=== PATIENT | male | born 1950 | race Caucasian/White ===

== ENCOUNTER 2018-12-28 10:50 | Outpatient (REF) | payer MEDICARE, SELFPAY ==
[2018-12-28 13:02] LABS: Abs Immature Grans 0.01 k/cumm (0.0-0.09); Absolute Basophil Count 0.02 k/cumm (0.0-0.2); Absolute Eosinophil Count 0.13 k/cumm (0.0-0.7); Absolute Lymphocyte Count 2.99 k/cumm (1.2-3.4); Absolute Monocyte Count 0.61 k/cumm (0.11-0.7); Absolute Neutrophil Count 3.92 k/cumm (1.2-6.7); Basophils % 0.3; Eosinophils % 1.7; HCT 41.2 % (40.0-50.0); HGB 13.7 g/dL (13.5-17.5); Immature Grans % 0.1; Lymphocytes % 38.9; Mean Corp. HGB Concentration 33.3 g/dL (32.0-36.0); Mean Corpuscular Volume 84.1 fL (80-95); Mean Platelet Volume 9.8 fL (8.0-11.0); Monocytes % 7.9; Neutrophils % 51.1; Platelet Count 296 x1000/uL (130-400); White Blood Cell Count 7.68 k/cumm (4.4-10.8)
== END 2018-12-28 11:10 ==
LOC: LBO 10:50
PROVIDERS: Visit Provider Nurse Practitioner Adult Health
DX: E11.9 Type 2 diabetes mellitus without complications (principal)
CPT/HCPCS: 36415; 85025

== ENCOUNTER 2019-01-02 10:42 | Outpatient (REF) | payer MEDICARE, SELFPAY ==
[2019-01-02 12:52] LABS: Abs Immature Grans 0.03 k/cumm (0.0-0.09); Absolute Basophil Count 0.04 k/cumm (0.0-0.2); Absolute Eosinophil Count 0.12 k/cumm (0.0-0.7); Absolute Lymphocyte Count 3.07 k/cumm (1.2-3.4); Absolute Monocyte Count 0.71 k/cumm (0.11-0.7); Absolute Neutrophil Count 4.19 k/cumm (1.2-6.7); Basophils % 0.5; Eosinophils % 1.5; HCT 39.8 % (40.0-50.0); HGB 13.6 g/dL (13.5-17.5); Immature Grans % 0.4; Lymphocytes % 37.6; Mean Corp. HGB Concentration 34.2 g/dL (32.0-36.0); Mean Corpuscular Hemoglobin 28.7 pg (27.0-33.0); Mean Platelet Volume 9.8 fL (8.0-11.0); Monocytes % 8.7; Neutrophils % 51.3; Platelet Count 295 x1000/uL (130-400); RBC 4.74 m/cumm (4.50-6.00); RBC Distribution Width 15.1 % (11.8-14.1); White Blood Cell Count 8.16 k/cumm (4.4-10.8)
== END 2019-01-02 11:02 ==
LOC: LBN 10:42
PROVIDERS: Visit Provider Family Medicine
DX: D64.9 Anemia, unspecified (principal)
CPT/HCPCS: 85025

== ENCOUNTER 2019-01-04 11:59 | Outpatient (CLI) | payer MEDICARE, SELFPAY ==
[2019-01-04 13:13] LABS: Abs Immature Grans 0.04 k/cumm (0.0-0.09); Absolute Basophil Count 0.03 k/cumm (0.0-0.2); Absolute Lymphocyte Count 3.92 k/cumm (1.2-3.4); Absolute Monocyte Count 0.81 k/cumm (0.11-0.7); Absolute Neutrophil Count 5.97 k/cumm (1.2-6.7); Basophils % 0.3; Eosinophils % 1.8; HCT 42.1 % (40.0-50.0); HGB 13.9 g/dL (13.5-17.5); Immature Grans % 0.4; Lymphocytes % 35.7; Mean Corpuscular Hemoglobin 28.2 pg (27.0-33.0); Mean Corpuscular Volume 85.4 fL (80-95); Mean Platelet Volume 9.9 fL (8.0-11.0); Monocytes % 7.4; Neutrophils % 54.4; Platelet Count 318 x1000/uL (130-400); RBC 4.93 m/cumm (4.50-6.00); RBC Distribution Width 15.9 % (11.8-14.1); White Blood Cell Count 10.97 k/cumm (4.4-10.8)
== END 2019-01-04 12:19 ==
PROVIDERS: Visit Provider Nurse Practitioner Adult Health
DX: D63.8 Anemia in other chronic diseases classified elsewhere (principal); E11.9 Type 2 diabetes mellitus without complications
CPT/HCPCS: 36415; 85025

== ENCOUNTER 2019-01-06 11:23 | Outpatient (REF) | payer MEDICARE, SELFPAY ==
[2019-01-06 12:25] LABS: Abs Immature Grans 0.02 k/cumm (0.0-0.09); Absolute Basophil Count 0.02 k/cumm (0.0-0.2); Absolute Eosinophil Count 0.16 k/cumm (0.0-0.7); Absolute Lymphocyte Count 2.56 k/cumm (1.2-3.4); Absolute Monocyte Count 0.54 k/cumm (0.11-0.7); Basophils % 0.3; Eosinophils % 2.1; HCT 40.7 % (40.0-50.0); HGB 13.4 g/dL (13.5-17.5); Immature Grans % 0.3; Lymphocytes % 33.7; Mean Corp. HGB Concentration 32.9 g/dL (32.0-36.0); Mean Corpuscular Hemoglobin 28.1 pg (27.0-33.0); Mean Corpuscular Volume 85.3 fL (80-95); Mean Platelet Volume 9.8 fL (8.0-11.0); Monocytes % 7.1; Neutrophils % 56.5; Platelet Count 282 x1000/uL (130-400); RBC 4.77 m/cumm (4.50-6.00); RBC Distribution Width 15.7 % (11.8-14.1)
== END 2019-01-06 11:43 ==
LOC: LBN 11:23
PROVIDERS: Visit Provider Nurse Practitioner Adult Health
DX: D64.9 Anemia, unspecified (principal)
CPT/HCPCS: 85025

== ENCOUNTER → 2019-01-18 14:52 | Outpatient (BNVA) | payer MEDICARE, SELFPAY | PROVIDERS: Referring Provider Internal Medicine; Visit Provider Psychiatry & Neurology Neurology | DX: G23.1 Progressive supranuclear ophthalmoplegia [Steele-Richardson-Olszewski] (principal); W19.XXXD Unspecified fall, subsequent encounter; G62.9 Polyneuropathy, unspecified | CPT/HCPCS: 99205 ==

== ENCOUNTER 2019-01-20 00:29 | Outpatient (CLI) | payer OTHER, SELFPAY ==
--- NOTE | 2019-01-20 07:19 | DI.US_ITS ---
SYMPTOM/DIAGNOSIS: F/U POSSIBLE FLUID COLLECTION IN GB LIMITED ABDOMINAL ULTRASOUND: The patient is status post cholecystectomy. There is a complex collection of fluid measuring 4 x 2.1 x 2.2 cm in the gallbladder fossa which on a prior [facility] study measured 6.6 x 3.8 x 4.2 cm. No echogenic foci are seen in the common duct which is not dilated. SUMMARY: A 4 x 2.1 x 2.2 cm complex fluid collection is seen in the gallbladder bed and is decreased in size when compared with the prior study where it measured 6.6 x 3.8 x 4.2 cm.
== END 2019-01-20 00:49 ==
PROVIDERS: Visit Provider Nurse Practitioner Adult Health
DX: K91.5 Postcholecystectomy syndrome (principal); Z90.49 Acquired absence of other specified parts of digestive tract
CPT/HCPCS: 76705

== ENCOUNTER 2019-01-21 11:38 | Outpatient (REF) | payer OTHER, SELFPAY ==
[2019-01-21 13:52] LABS: TSH 0.66 uIU/mL (0.358-3.74); Vitamin B12 547 pg/mL (193-986)
== END 2019-01-21 11:58 ==
LOC: LBN 11:38
PROVIDERS: Visit Provider Nurse Practitioner Adult Health
DX: M62.81 Muscle weakness (generalized) (principal)
CPT/HCPCS: 82607; 84443

== ENCOUNTER 2019-02-16 12:57 | Emergency (ER) | payer MEDICARE, SELFPAY ==
[2019-02-16] VITALS (12 sets, daily range): BP systolic 115–139; BP diastolic 66–86; PULSE 90–105; RESP 16–27; TEMP 36.6; O2SAT 94–98
--- NOTE | 2019-02-16 13:10 | DI.CT_ITS ---
SYMPTOMS/DIAGNOSIS: FALL, PT ON [facility]X[place] CRANIAL CT: Atrophic changes consistent with age are demonstrated. There is no evidence of an intra or extra-axial hemorrhage. Regions of diminished absorption in the frontoparietal white matter bilaterally are consistent with small vessel disease. There is no evidence of a skull fracture. The paranasal sinuses are intact. There is no mastoid effusion. CERVICAL SPINE CT: A CT examination of the cervical spine was carried out according to the usual protocol. The vertebral bodies are intact and are in normal alignment. There is no evidence of gross disc space narrowing. The posterior elements are intact with note made of facet joint DJD. The neural canal is widely patent throughout. The odontoid is intact and is closely applied to the anterior arch of C 1. The prevertebral soft tissues are unremarkable. SUMMARY: No evidence of a cervical spine fracture or subluxation.
--- NOTE | 2019-02-16 13:30 | W.ED.GENAD ---
Discharge Plan Disposition Patient Disposition: HOME Condition: Stable Discharge Details Chief Complaint: HeadInjury Clinical Impression: Hematoma of parietal scalp, Falls Primary Care Provider: Genia Helms ED Provider: Ken Sutton Home Meds and New Rx's Prescriptions: Continued aspirin 81 mg tablet 81 mg PO DAILY RF: 0 cholecalciferol (vitamin D3) 1,000 unit capsule 1,000 unit PO DAILY RF: 0 fluoxetine 40 mg capsule 40 mg PO DAILY RF: 0 furosemide 40 mg tablet 40 mg PO DAILY RF: 0 guaifenesin 100 mg/5 mL liquid 100 mg PO QID PRNRF: 0 insulin glargine 100 unit/mL (3 mL) insulin pen 86 unit SC DAILY RF: 0 magnesium oxide 420 mg tablet 420 mg PO DAILY RF: 0 metformin 1,000 mg tablet 1,000 mg PO BID RF: 0 dimethicone-petrolatum 1-30 % cream TP PRN RF: 0 simvastatin 20 mg tablet 20 mg PO QHS RF: 0 terazosin 5 mg capsule 5 mg PO QHS RF: 0 triamcinolone acetonide 0.025 % cream 1 applic TP BID RF: 0 buprenorphine HCl 2 mg tablet, sublingual 2 mg SL DAILY RF: 0 buprenorphine HCl 8 mg tablet, sublingual 8 mg SL DAILY RF: 0 omeprazole 20 mg tablet,delayed release (DR/EC) 20 mg PO DAILY RF: 0 cyanocobalamin (vitamin B-12) 1,000 mcg tablet 1,000 mcg PO DAILY RF: 0 hydromorphone 2 mg tablet 2 mg PO Q6H PRNRF: 0 aspirin 81 mg tablet,chewable 81 mg PO DAILY RF: 0 cholecalciferol (vitamin D3) 1,000 unit capsule 1,000 unit PO DAILY RF: 0 fluoxetine 40 mg capsule 40 mg PO DAILY RF: 0 acetaminophen 500 mg capsule 1,000 mg PO QID PRNRF: 0 bisacodyl [Dulcolax (bisacodyl)] 10 mg suppository 10 mg FL DAILY PRNRF: 0 Eliquis 5 mg tablet 5 mg PO BID RF: 0 apixaban 5 mg tablet 10 mg PO BID RF: 0 Humalog U-100 Insulin 100 unit/mL Solution RF: 0 carbidopa-levodopa 25-100 mg Tablet 1 tab PO TID RF: 0 loratadine [Claritin] 10 mg Tablet PRNRF: 0 Lantus Solostar U-100 Insulin 100 unit/mL (3 mL) Insulin Pen 16 unit SUBCUT .QHS RF: 0 Discharge Instructions Instructions: Head Injury (ED), Hematoma (ED) Additional Instructions: Patient may continue to use acetaminophen as needed for discomfort and apply cold compress to area of scalp hematoma. Continue to monitor patient for any change in condition and have patient reevaluated as needed. Patient may otherwise continue normally prescribed medication. Referrals: Genia Helms [Primary Care Provider] - (As needed for reassessment or for any change in condition) Discharge Data Discharge Date/Time-TO BE ENTERED AT DEPARTURE: 02/16/19 15:50 Medical Decision Making Patient presenting to the emergency department for chief complaint of head injury. Patient had a witnessed fall at [facility] where he tripped while using his walker falling backwards and striking his head. Patient is on Eliquis and does state superficial head pain but denies any loss of consciousness, chest pain, palpitations, other injury or areas of pain. Physical exam is positive for a significant hematoma to the right posterior scalp otherwise no C-spine tenderness, clear lung sounds, no neurological deficits, extremity exam unremarkable for acute trauma. Plan to perform radiological imaging of the head and cervical spine given patient's medical history, he is anticoagulated, and mechanism of injury. Plan to give patient Tylenol pending results Review of radiological imaging shows scalp hematoma otherwise no acute intracranial findings and no cervical spinal fractures are noted. Did discuss these findings with radiologist. Patient encouraged to continue to use acetaminophen for pain control and apply ice to area of hematoma. I feel the patient is able to be safely transported back to [facility] and is encouraged to continue to use walker during ambulation. Report was called by medical staff assistant over to the rehab facility and patient transferred back to their care. HPI General Mode of arrival: ambulatory. Date/Time Provider Initiated Documentation: 02/16/19 13:00. Limitations to Documentation: no limitations. Information obtained by: patient, EMS and RN notes reviewed. History of Present Illness 68 year old M presents to the emergency department with the chief complaint of Fall with head injury, described as moderate, with intensity rated at 6. Quality is described as aching, and is localized to the head (Right posterior). Patient started experiencing this minute(s) (30) and it has been constant. No relieving factors improve symptom(s), Patient notes no other symptoms.. Patient did receive the following treatments prior to arrival, none Related Data Home Medications Medication Instructions Recorded Confirmed aspirin 81 mg chewable tablet 81 mg PO DAILY 01/11/19 02/16/19 aspirin 81 mg tablet 81 mg PO DAILY 01/11/19 02/16/19 buprenorphine HCl 2 mg sublingual 2 mg SL DAILY 01/11/19 02/16/19 tablet buprenorphine HCl 8 mg sublingual 8 mg SL DAILY 01/11/19 02/16/19 tablet cholecalciferol (vitamin D3) 1,000 1,000 unit PO DAILY 01/11/19 02/16/19 unit capsule cholecalciferol (vitamin D3) 1,000 1,000 unit PO DAILY 01/11/19 02/16/19 unit capsule cyanocobalamin (vitamin B-12) 1,000 mcg PO DAILY 01/11/19 02/16/19 1,000 mcg tablet dimethicone-petrolatum 1 %-30 % applic TP PRN 01/11/19 01/11/19 topical cream fluoxetine 40 mg capsule 40 mg PO DAILY 01/11/19 02/16/19 fluoxetine 40 mg capsule 40 mg PO DAILY 01/11/19 02/16/19 furosemide 40 mg tablet 40 mg PO DAILY 01/11/19 02/16/19 guaifenesin 100 mg/5 mL oral liquid 100 mg PO QID PRN ml 01/11/19 01/11/19 hydromorphone 2 mg tablet 2 mg PO Q6H PRN 01/11/19 01/11/19 insulin glargine 100 unit/mL (3 86 unit SC DAILY ml 01/11/19 02/16/19 mL) subcutaneous pen magnesium oxide 420 mg tablet 420 mg PO DAILY tab 01/11/19 01/11/19 metformin 1,000 mg tablet 1,000 mg PO BID 01/11/19 02/16/19 omeprazole 20 mg tablet,delayed 20 mg PO DAILY 01/11/19 02/16/19 release simvastatin 20 mg tablet 20 mg PO QHS 01/11/19 02/16/19 terazosin 5 mg capsule 5 mg PO QHS 01/11/19 02/16/19 triamcinolone acetonide 0.025 % 1 applic TP BID 01/11/19 02/16/19 topical cream acetaminophen 500 mg capsule 1,000 mg PO QID PRN cap 01/19/19 02/16/19 apixaban 5 mg tablet 5 mg PO BID 01/19/19 02/16/19 apixaban 5 mg tablet 10 mg PO BID tab 01/19/19 02/16/19 bisacodyl 10 mg rectal suppository 10 mg FL DAILY PRN 01/19/19 02/16/19 Humalog U-100 Insulin 02/16/19 Lantus Solostar U-100 Insulin 16 unit SUBCUT .QHS 02/16/19 02/16/19 carbidopa-levodopa 1 tab PO TID 02/16/19 02/16/19 loratadine [Claritin] mg PRN 02/16/19 Allergies Allergy/AdvReac Type Severity Reaction Status Date / Time aspirin Allergy Unknown Verified 02/16/19 13:27 indomethacin [From Indocin] Allergy Unknown Verified 02/16/19 13:27 latex Allergy Unknown Verified 02/16/19 13:27 General Stated Complaint: HeadInjury RACHEL: 3 Review of Systems Constitutional Denies body ache(s), Denies chills, Denies fever(s) and Reports headache(s) Eyes Denies change in vision ENT Denies dizziness and Reports headache(s) Cardiovascular Denies chest pain and Denies syncope Gastrointestinal Denies nausea and Denies vomiting Musculoskeletal Reports system reviewed and no additional complaints, except as docu Neurologic Reports as per HPI, Denies dizziness, Denies syncope, Reports headache(s) and Denies sensory deficit PFSH Medical History Depression with anxiety (Acute) Diabetes (Chronic) Falls (Chronic) H/O ETOH abuse (Acute) Hypertension (Chronic) Insomnia (Acute) Obesity (Chronic) LULA (obstructive sleep apnea) (Chronic) Osteoarthritis (Chronic) Peripheral neuropathy (Chronic) PSP (progressive supranuclear palsy) (Chronic) PTSD (post-traumatic stress disorder) (Acute) Surgical History S/P cholecystectomy (Acute) Social History Smoking/Tobacco Use Status: Never Alcohol Intake: former Year quit: 2018 Drug use: Never Household members: spouse Number of Children: 3 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[place]; 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 Exam Const General: cooperative, healthy appearing, no acute distress and well groomed Orientation: alert, awake and oriented x3 HENMT Head: no Hernandez's sign, hematoma right parietal, no palpable skull fracture, no raccoon eyes, no temporal artery tenderness and No periorbital ecchymosis Ears: hearing grossly normal bilaterally and TM's normal bilaterally Mouth: oral mucosae normal and moist mucous membranes Throat: posterior oropharynx normal Eyes Visual Morgan: normal visual morgan by confrontation Alignment and Position: alignment normal Periorbital: periorbital findings normal Eyelids: eyelids normal Sclera: sclerae normal Cornea: corneas normal Pupils: PERRL EOM: EOM intact bilaterally Neck Neck: normal visual inspection, full ROM, no lymphadenopathy and no meningeal signs Resp Effort & Inspection: normal respiratory effort and able to speak in complete sentences Auscultation: clear to auscultation bilaterally Cardio Rate: regular rate Rhythm: regular rhythm Heart Sounds: S1 normal and S2 normal Neuro General: alert, awake, oriented x3, gait normal, tone normal, moves all extremities, CN's II-XI intact bilaterally and not confused Cognition: normal cognition Speech: speech normal Motor: muscle tone normal throughout, strength 5/5 throughout, no pronator drift, no movement abnormalities noted and no fasciculations Sensory Exam: no sensory deficits noted Coordination: [id number] test normal, Romberg test normal, Does not sway with eyes open, rapid alternating movement UE normal and rapid alternating movement LE normal Course Vital Signs Temperature 36.6 C 02/16/19 12:59 Pulse 97 H 02/16/19 12:59 Respiratory Rate 16 02/16/19 12:59 Blood Pressure 139/86 02/16/19 12:59 Pulse Oximetry 98 02/16/19 12:59 Temperature 36.6 C 02/16/19 12:59 Temperature Source Skin 02/16/19 12:59 Pulse 97 H 02/16/19 12:59 Respiratory Rate 16 02/16/19 12:59 Respiratory Effort Non-Labored 02/16/19 12:59 Blood Pressure 139/86 02/16/19 12:59 Blood Pressure Position Supine 02/16/19 12:59 Pulse Oximetry 98 02/16/19 12:59 Oxygen Delivery Method Room Air 02/16/19 12:59 Oxygen Flow Rate 0 02/16/19 12:59
[2019-02-16] MEDS: Acetaminophen 325 MG TAB 650 MG PO (14:05)
== END 2019-02-16 15:50 | disposition home or self-care (01) ==
PROVIDERS: Emergency Provider Nurse Practitioner Family; PCP Family Medicine
DX: S00.03XA Contusion of scalp, initial encounter (principal); W01.0XXA Fall on same level from slipping, tripping and stumbling without subsequent striking against object, initial encounter; E11.9 Type 2 diabetes mellitus without complications; Z79.4 Long term (current) use of insulin; I10 Essential (primary) hypertension
CPT/HCPCS: 99283; 70450; 72125; 99282

== ENCOUNTER 2019-02-18 01:18 | Outpatient (CLI) | payer OTHER, SELFPAY ==
--- NOTE | 2019-02-18 08:17 | DI.RAD_ITS ---
SYMPTOM/DIAGNOSIS: SOB, R06.02 CHEST X-RAY: PA Lateral. No priors. Heart size and pulmonary vasculature are within normal limits. No focal consolidating infiltrates, effusions or pneumothoraces are identified. Age appropriate degenerative changes are seen in the spine. There is a compression fracture deformity at T4 with loss of approximately 20% of the height of the vertebral body. IMPRESSION: No acute pulmonary process.
== END 2019-02-18 01:38 ==
PROVIDERS: PCP Family Medicine; Visit Provider Nurse Practitioner Adult Health
DX: R06.02 Shortness of breath (principal)
CPT/HCPCS: 71046

== ENCOUNTER 2019-02-21 02:00 | Outpatient (CLI) | payer OTHER, SELFPAY | END 2019-02-21 02:20 | PROVIDERS: PCP Family Medicine; Visit Provider Nurse Practitioner Adult Health | DX: R06.02 Shortness of breath (principal); R00.0 Tachycardia, unspecified | CPT/HCPCS: 93005; 93010 ==

== ENCOUNTER 2019-03-23 18:31 | Emergency (ER) | payer MEDICARE, SELFPAY ==
[2019-03-23 18:32] VITALS: BP 115/71; PULSE 91; RESP 18; TEMP 36.5; O2SAT 96
--- NOTE | 2019-03-23 19:27 | ED.GENADUL_ITS ---
Discharge Plan Disposition Patient Disposition: HOME Condition: Stable Discharge Details Chief Complaint: Orthopedic Clinical Impression: Abrasion of leg, right, Contusion of leg, right Primary Care Provider: Genia Helms ED Provider: Carley Roberts Home Meds and New Rx's Prescriptions: Continued GlucaGen Diagnostic Kit 1 mg/mL recon soln 1 mg SC ONCE RF: 0 dextrose [Dex4 Glucose] 40 % gel 15 gm PO Q15M RF: 0 ipratropium-albuterol 0.5 mg-3 mg(2.5 mg base)/3 mL solution for nebulization 3 ml IH QID PRNRF: 0 loperamide [Imodium A-D] 2 mg capsule 2 mg PO Q6H PRN PRNRF: 0 magnesium hydroxide [Milk of Magnesia] 400 mg/5 mL suspension 5 ml PO DAILY PRNRF: 0 (DME) Oxygen Tank See Rx Instructions .ROUTE .MEDSUPPLY Qty: 1 RF: 0 albuterol sulfate [Proventil HFA] 90 mcg/actuation HFA aerosol inhaler 2 puff IH Q4H RF: 0 cholecalciferol (vitamin D3) 1,000 unit capsule 1,000 unit PO DAILY RF: 0 fluoxetine 40 mg capsule 40 mg PO DAILY RF: 0 furosemide 40 mg tablet 40 mg PO DAILY RF: 0 guaifenesin 100 mg/5 mL liquid 100 mg PO QID PRNRF: 0 insulin glargine 100 unit/mL (3 mL) insulin pen 86 unit SC DAILY RF: 0 metformin 1,000 mg tablet 1,000 mg PO BID RF: 0 dimethicone-petrolatum 1-30 % cream TP PRN RF: 0 simvastatin 20 mg tablet 20 mg PO QHS RF: 0 terazosin 5 mg capsule 5 mg PO QHS RF: 0 triamcinolone acetonide 0.025 % cream 1 applic TP BID RF: 0 buprenorphine HCl 2 mg tablet, sublingual 2 mg SL DAILY RF: 0 buprenorphine HCl 8 mg tablet, sublingual 8 mg SL DAILY RF: 0 omeprazole 20 mg tablet,delayed release (DR/EC) 20 mg PO DAILY RF: 0 cyanocobalamin (vitamin B-12) 1,000 mcg tablet 1,000 mcg PO DAILY RF: 0 magnesium oxide 420 mg tablet 400 mg PO DAILY RF: 0 acetaminophen 500 mg capsule 1,000 mg PO QID PRNRF: 0 bisacodyl [Dulcolax (bisacodyl)] 10 mg suppository 10 mg LA DAILY PRNRF: 0 Eliquis 5 mg tablet 5 mg PO BID RF: 0 apixaban 5 mg tablet 10 mg PO BID RF: 0 insulin lispro [Humalog U-100 Insulin] 100 unit/mL Solution 0 - 5 sliding scale dose subcut DIRECTED RF: 0 carbidopa-levodopa 25-100 mg Tablet 2 tab PO TID RF: 0 loratadine [Claritin] 10 mg Tablet 10 mg PO DAILY RF: 0 Lantus Solostar U-100 Insulin 100 unit/mL (3 mL) Insulin Pen 16 unit SUBCUT .QHS RF: 0 Fleet Enema 19-7 gram/118 mL Enema 118 ml LA DIRECTED RF: 0 Discharge Instructions Instructions: Contusion in Adults (ED), Abrasion (ED) Additional Instructions: Keep wound clean and dry. Apply topical antibiotic ointment as needed. Take Tylenol as needed and directed for pain. Follow-up with your primary care doctor next week for reevaluation. Return to the emergency department if you develop any worsening or new concerning symptoms. Discharge Data Discharge Physician: Carley Roberts Medical Decision Making 68-year-old male who presents with right leg injury after hit against a table at [facility] while walking today. Denies any other injuries. There is a superficial abrasion to the right anterior distal leg with surrounding tenderness. There is no deformity. Neurovascularly intact. We will give a dose of Tylenol and sent for right tib-fib x-ray. X-ray negative. Last tetanus August 2018. Will give a Boostrix here. Will cover wounds with topical antibiotic and dressing. Advised to rest, ice, el evate, follow-up with the primary care doctor return here with any concerns. Medical Records Medical records reviewed: Yes I reviewed the patient's medical records. Imaging Data Radiologic Study: Radiologist's impression: XR Right Tibia and Fibula EXAM DATE/TIME: 03/23/2019 7:23 PM CLINICAL HISTORY: 68 years old, male; Pain; Lower leg; Patient HX: S/P hit right leg on table, abrasion distal anterior leg TECHNIQUE: Imaging protocol: XR Right tibia and fibula. Views: 2 views. COMPARISON: No relevant prior studies available. FINDINGS: Bones/joints: Unremarkable. Soft tissues: Unremarkable. IMPRESSION: No acute bony injury. HPI General Mode of arrival: ambulatory . Date/Time Provider Initiated Documentation: 03/23/19 18:46 . Limitations to Documentation: no limitations . Information obtained by: patient . HPI Narrative: Patient is a 68-year-old male who presents the ED with complaint of right lower leg injury after hit his right leg on a table while walking with his walker prior to [facility] at [facility]. Patient states he misjudged his step but denies any dizziness, chest pain or shortness of breath prior to fall. He denies any other injuries such as head in jury, hip pain, knee pain or any other extremity injury. Related Data Home Medications Medication Instructions Recorded Confirmed buprenorphine HCl 2 mg sublingual 2 mg SL DAILY 01/11/19 03/22/19 tablet buprenorphine HCl 8 mg sublingual 8 mg SL DAILY 01/11/19 03/22/19 tablet cholecalciferol (vitamin D3) 1,000 1,000 unit PO DAILY 01/11/19 03/22/19 unit capsule cyanocobalamin (vitamin B-12) 1,000 mcg PO DAILY 01/11/19 03/22/19 1,000 mcg tablet dimethicone-petrolatum 1 %-30 % applic TP PRN 01/11/19 03/22/19 topical cream fluoxetine 40 mg capsule 40 mg PO DAILY 01/11/19 03/23/19 furosemide 40 mg tablet 40 mg PO DAILY 01/11/19 03/23/19 guaifenesin 100 mg/5 mL oral liquid 100 mg PO QID PRN ml 01/11/19 03/23/19 insulin glargine 100 unit/mL (3 86 unit SC DAILY ml 01/11/19 03/22/19 mL) subcutaneous pen metformin 1,000 mg tablet 1,000 mg PO BID 01/11/19 03/23/19 omeprazole 20 mg tablet,delayed 20 mg PO DAILY 01/11/19 03/23/19 release simvastatin 20 mg tablet 20 mg PO QHS 01/11/19 03/23/19 terazosin 5 mg capsule 5 mg PO QHS 01/11/19 03/22/19 triamcinolone acetonide 0.025 % 1 applic TP BID 01/11/19 03/23/19 topical cream acetaminophen 500 mg capsule 1,000 mg PO QID PRN cap 01/19/19 03/23/19 apixaban 5 mg tablet 5 mg PO BID 01/19/19 03/23/19 apixaban 5 mg tablet 10 mg PO BID tab 01/19/19 03/22/19 bisacodyl 10 mg rectal suppository 10 mg LA DAILY PRN 01/19/19 03/23/19 Lantus Solostar U-100 Insulin 16 unit SUBCUT .QHS 02/16/19 03/23/19 carbidopa-levodopa 2 tab PO TID 02/16/19 03/23/19 insulin lispro [Humalog U-100 0 - 5 sliding scale dose SUBCUT 02/16/19 03/23/19 Insulin] DIRECTED loratadine [Claritin] 10 mg PO DAILY 02/16/19 03/23/19 Oxygen #1 each 03/22/19 03/22/19 albuterol sulfate 90 mcg/actuation 2 puff IH Q4H gm 03/22/19 03/23/19 aerosol inhaler dextrose 40 % oral gel 15 gm PO Q15M 03/22/19 03/23/19 glucagon (human recombinant) 1 1 mg SC ONCE 03/22/19 03/22/19 mg/mL solution for injection ipratropium-albuterol 0.5 mg-3 3 ml IH QID PRN 03/22/19 03/22/19 mg(2.5 mg base)/3 mL nebulization soln loperamide 2 mg capsule 2 mg PO Q6H PRN PRN cap 03/22/19 03/22/19 magnesium hydroxide 400 mg/5 mL 5 ml PO DAILY PRN 03/22/19 03/23/19 oral suspension magnesium oxide 420 mg tablet 400 mg PO DAILY tab 03/22/19 03/23/19 Fleet Enema 118 ml LA DIRECTED 03/23/19 03/23/19 Allergies Allergy/AdvReac Type Severity Reaction Status Date / Time aspirin Allergy Unknown Verified 03/22/19 11:41 indomethacin [From Indocin] Allergy Unknown Verified 03/22/19 11:41 latex Allergy Unknown Verified 03/22/19 11:41 General Stated Complaint: Orthopedic RACHEL: 3 Review of Systems Review of Systems All systems reviewed & are unremarkable except as noted in HPI and below Constitutional Reports as per HPI, Denies chills and Denies fever(s) Eyes Denies blurry vision ENT Denies dizziness, Denies sore throat and Denies throat swelling Cardiovascular Denies chest pain and Denies dyspnea Respiratory Denies cough and Denies dyspnea Gastrointestinal Denies abdominal pain, Denies diarrhea and Denies vomiting Genitourinary Denies hematuria and Denies dysuria Musculoskeletal Denies back pain and Denies numbness Integumentary/Breasts Denies lesions and Denies rash Neurologic Denies dizziness, Denies focal weakness and Denies numbness Allergic/Immunologic Denies throat swelling [facility] Medical History Depression with anxiety (Acute) Diabetes (Chronic) Falls (Chronic) H/O ETOH abuse (Acute) Hypertension (Chronic) Insomnia (Acute) Obesity (Chronic) LULA (obstructive sleep apnea) (Chronic) Osteoarthritis (Chronic) Peripheral neuropathy (Chronic) PSP (progressive supranuclear palsy) (Chronic) PTSD (post-traumatic stress disorder) (Acute) Surgical History S/P cholecystectomy (Acute) Social History Smoking/Tobacco Use Status: Never Alcohol Intake: former Year quit: 2018 Drug use: Never Household members: spouse Housing: long term Number of Children: 3 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[place]; 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 Do you feel safe at home: Yes Do you feel safe in your relationship?: Yes Additional Social history: [facility] Exam Const General: cooperative, healthy appearing and no acute distress [facility] Head: normal to inspection Mouth: oral mucosae normal Eyes General: appearance normal, both eyes and all related structures Neck Neck: normal visual inspection Resp Effort & Inspection: normal respiratory effort and able to speak in complete sentences Cardio Rate: regular rate Skin General skin exam: no rashes or lesions noted Neuro General: alert, awake and oriented x3 Motor: muscle tone normal throughout Extrem Ankle/foot/toe images: 1. 1 cm superficial laceration noted to right anterior distal leg with surrounding tenderness. There is no bony deformity, significant ecchymosis, abscess. There is no bleeding. Patient has chronic venous stasis. Other: Bilateral PT/DP pulses intact Psych Appearance: grossly normal Affect: normal affect Course Vital Signs Temperature 97.7 F 03/23/19 18:32 Pulse 91 H 03/23/19 18:32 Respiratory Rate 18 03/23/19 18:32 Blood Pressure 115/71 03/23/19 18:32 Pulse Oximetry 96 03/23/19 18:32 Temperature 97.7 F 03/23/19 18:32 Temperature Source Skin 03/23/19 18:32 Pulse 91 H 03/23/19 18:32 Respiratory Rate 18 03/23/19 18:32 Respiratory Effort 03/23/19 18:38 Blood Pressure 115/71 03/23/19 18:32 Blood Pressure Position Supine 03/23/19 18:32 Pulse Oximetry 96 03/23/19 18:32 Oxygen Delivery Method Room Air 03/23/19 18:32 Oxygen Flow Rate 0 03/23/19 18:32 Pain Level 4 03/23/19 18:32
--- NOTE | 2019-03-23 19:31 | DI.RAD_ITS ---
SYMPTOM/DIAGNOSIS: S/P HIT RT LEG ON TABLE, ABRASION DISTAL ANT LEG RIGHT TIB/FIB: Two views. No priors No bone, joint or soft tissue abnormality is identified.
--- NOTE | 2019-03-23 19:54 | DI.VRAD_ITS ---
EXAM: XR Right Tibia and Fibula EXAM DATE/TIME: 03/23/2019 7:23 PM CLINICAL HISTORY: 68 years old, male; Pain; Lower leg; Patient HX: S/P hit right leg on table, abrasion distal anterior leg TECHNIQUE: Imaging protocol: XR Right tibia and fibula. Views: 2 views. COMPARISON: No relevant prior studies available. FINDINGS: Bones/joints: Unremarkable. Soft tissues: Unremarkable. IMPRESSION: No acute bony injury. Dictated and Authenticated by: Zeny Ravi MD. Ordering:MINO Howe MD
[2019-03-23] MEDS: Acetaminophen 325 MG TAB (20:05)
[2019-03-23 20:06] VITALS: BP 106/79; PULSE 87; RESP 16; O2SAT 97
== END 2019-03-23 20:34 | disposition home or self-care (01) ==
LOC: ER 20:00
PROVIDERS: Emergency Provider Physician Assistant; PCP Internal Medicine
DX: S80.811A Abrasion, right lower leg, initial encounter (principal); W22.03XA Walked into furniture, initial encounter; E11.9 Type 2 diabetes mellitus without complications; Z79.4 Long term (current) use of insulin; I10 Essential (primary) hypertension
CPT/HCPCS: 96372; 99284; 73590; 99283

== ENCOUNTER 2019-03-26 17:24 | Emergency (ER) | payer MEDICARE, SELFPAY ==
[2019-03-26] VITALS (8 sets, daily range): BP systolic 113–121; BP diastolic 78; PULSE 94–98; RESP 16–18; TEMP 36.2–36.5; O2SAT 94–97
--- NOTE | 2019-03-26 17:29 | DI.CT_ITS ---
SYMPTOM/DIAGNOSIS: FALL, STRUCK LATERAL TO LEFT EYE NONCONTRAST HEAD CT: There is mild atrophy consistent with the patient's age. The ventricles are somewhat enlarged but unchanged when compared with 16 February 2019. There are mild white matter changes of small vessel disease. The orbits appear intact. No fractures are seen. IMPRESSION: No acute abnormality.
--- NOTE | 2019-03-26 17:30 | ED.GENADUL_ITS ---
Discharge Plan Disposition Patient Disposition: HOME Condition: Good Discharge Details Chief Complaint: HeadInjury Clinical Impression: Face lacerations Primary Care Provider: ELVIN KHOURY ED Provider: Amber Mi Home Meds and New Rx's Prescriptions: Continued GlucaGen Diagnostic Kit 1 mg/mL recon soln 1 mg SC ONCE RF: 0 dextrose [Dex4 Glucose] 40 % gel 15 gm PO Q15M RF: 0 ipratropium-albuterol 0.5 mg-3 mg(2.5 mg base)/3 mL solution for nebulization 3 ml IH QID PRNRF: 0 loperamide [Imodium A-D] 2 mg capsule 2 mg PO Q6H PRN PRNRF: 0 magnesium hydroxide [Milk of Magnesia] 400 mg/5 mL suspension 5 ml PO DAILY PRNRF: 0 (DME) Oxygen Tank See Rx Instructions .ROUTE .MEDSUPPLY Qty: 1 RF: 0 albuterol sulfate [Proventil HFA] 90 mcg/actuation HFA aerosol inhaler 2 puff IH Q4H RF: 0 cholecalciferol (vitamin D3) 1,000 unit capsule 1,000 unit PO DAILY RF: 0 fluoxetine 40 mg capsule 40 mg PO DAILY RF: 0 furosemide 40 mg tablet 40 mg PO DAILY RF: 0 guaifenesin 100 mg/5 mL liquid 100 mg PO QID PRNRF: 0 insulin glargine 100 unit/mL (3 mL) insulin pen 86 unit SC DAILY RF: 0 metformin 1,000 mg tablet 1,000 mg PO BID RF: 0 dimethicone-petrolatum 1-30 % cream TP PRN RF: 0 simvastatin 20 mg tablet 20 mg PO QHS RF: 0 terazosin 5 mg capsule 5 mg PO QHS RF: 0 triamcinolone acetonide 0.025 % cream 1 applic TP BID RF: 0 buprenorphine HCl 2 mg tablet, sublingual 2 mg SL DAILY RF: 0 buprenorphine HCl 8 mg tablet, sublingual 8 mg SL DAILY RF: 0 omeprazole 20 mg tablet,delayed release (DR/EC) 20 mg PO DAILY RF: 0 cyanocobalamin (vitamin B-12) 1,000 mcg tablet 1,000 mcg PO DAILY RF: 0 magnesium oxide 420 mg tablet 400 mg PO DAILY RF: 0 acetaminophen 500 mg capsule 1,000 mg PO QID PRNRF: 0 bisacodyl [Dulcolax (bisacodyl)] 10 mg suppository 10 mg PA DAILY PRNRF: 0 Eliquis 5 mg tablet 5 mg PO BID RF: 0 apixaban 5 mg tablet 10 mg PO BID RF: 0 insulin lispro [Humalog U-100 Insulin] 100 unit/mL Solution 0 - 5 sliding scale dose subcut DIRECTED RF: 0 carbidopa-levodopa 25-100 mg Tablet 2 tab PO TID RF: 0 loratadine [Claritin] 10 mg Tablet 10 mg PO DAILY RF: 0 Lantus Solostar U-100 Insulin 100 unit/mL (3 mL) Insulin Pen 16 unit SUBCUT .QHS RF: 0 Fleet Enema 19-7 gram/118 mL Enema 118 ml PA DIRECTED RF: 0 Discharge Instructions Instructions: Facial Laceration (ED) Additional Instructions: CT of head was without acute abnormality. Wound was closed with adhesive. Please allow this to come off naturally. Do not apply any ointment over this. Tylenol as needed for discomfort. Monitor wounds for signs of infection including redness, warmth, drainage, increased pain, fevers/chills. If you note these or other new/worsening symptoms please seek care urgently once again. Please follow up with primary next week for reevaluation and to discuss your recurrent falls. Referrals: ELVIN KHOURY [Primary Care Provider] - Medical Decision Making Patient is a 68-year-old male presents today, [facility], with chief complaint of laceration lateral to the left eye. He patient had a witnessed fall. Reports that he went to stand up, misjudged and tipped forward striking the lateral aspect of the left eye against a table. Denies loss conscious. No headache. Patient is anticoagulated as he has a history of pulmonary embolism. Staff immediately have the patient up, brought him back to his room. He denies pain anywhere else. He is not actively bleeding. Denies feeling presyncopal prior to the fall. Patient does have history of frequent falls. On exam, patient has a 1 cm laceration of the left lateral eye. Extraocular movements are intact. Patient is dazing off into space frequently and needs to be redirected. Is reported to be baseline from [facility]. He is alert and oriented x4. Answers questions appropriately. Is able to follow commands with no deficit noted on neurologic exam. Patient's wound is not actively bleeding. It is into subcutaneous tissue. This patient is anticoagulated, I am concerned for possible intracranial pathology and will send for CT. I do not feel that any other imaging is warranted. He has no midline tenderness, full range of motion of the neck. CT was reviewed by radiologist: FINDINGS: Brain: Global cerebral atrophy is consistent with patient's age. Decreased attenuation within the white matter tracts of both cerebral hemispheres is nonspecific but typically seen with small vessel disease/chronic white matter ischemic changes of aging. No intracranial hemorrhage or mass effect. Ventricles: Unremarkable. No ventriculomegaly. Bones/joints: Unremarkable. No acute fracture. Sinuses: Visualized sinuses are unremarkable. No fluid levels. Mastoid air cells: Visualized mastoid air cells are well aerated. No mastoid effusion. Soft tissues: Unremarkable. IMPRESSION: No acute intracranial abnormality. Discussed these findings with the patient. Attention was then turned to the laceration. Wound was extensively irrigated by myself. No foreign body or debris was noted. Explored to base in bloodless field. Wound edges easily reapproximated no functional status though this is a good candidate for adhesive closure. Discussed this plan with the patient who is in agreement. After the wound, a thin layer of adhesive was applied. He tolerated this well. Patient was discharged back to [facility]. We discussed care of the adhesive wound. Will monitor for signs of infection. We will follow-up with primary care for reevaluation. They are given return precautions. All the concerns were addressed and he is in agreement with this plan. HPI General Mode of arrival: EMS . Date/Time Provider Initiated Documentation: 03/26/19 18:35 . Limitations to Documentation: no limitations . Information obtained by: patient, EMS and RN notes reviewed . History of Present Illness 68 year old M presents to the emergency department with the chief complaint of laceration lateral to left eye, described as moderate, with intensity rated at 4. Quality is described as aching, and is localized to the face. Patient reports no radiation. Patient started experiencing this minute(s) and it has been constant. No relieving factors improve symptom(s), No exacerbating factors reported . Patient notes no other symptoms.. Patient did receive the following treatments prior to arrival, none Related Data Home Medications Medication Instructions Recorded Confirmed buprenorphine HCl 2 mg sublingual 2 mg SL DAILY 01/11/19 03/22/19 tablet buprenorphine HCl 8 mg sublingual 8 mg SL DAILY 01/11/19 03/22/19 tablet cholecalciferol (vitamin D3) 1,000 1,000 unit PO DAILY 01/11/19 03/22/19 unit capsule cyanocobalamin (vitamin B-12) 1,000 mcg PO DAILY 01/11/19 03/22/19 1,000 mcg tablet dimethicone-petrolatum 1 %-30 % applic TP PRN 01/11/19 03/22/19 topical cream fluoxetine 40 mg capsule 40 mg PO DAILY 01/11/19 03/23/19 furosemide 40 mg tablet 40 mg PO DAILY 01/11/19 03/23/19 guaifenesin 100 mg/5 mL oral liquid 100 mg PO QID PRN ml 01/11/19 03/23/19 insulin glargine 100 unit/mL (3 86 unit SC DAILY ml 01/11/19 03/22/19 mL) subcutaneous pen metformin 1,000 mg tablet 1,000 mg PO BID 01/11/19 03/26/19 omeprazole 20 mg tablet,delayed 20 mg PO DAILY 01/11/19 03/26/19 release simvastatin 20 mg tablet 20 mg PO QHS 01/11/19 03/26/19 terazosin 5 mg capsule 5 mg PO QHS 01/11/19 03/26/19 triamcinolone acetonide 0.025 % 1 applic TP BID 01/11/19 03/26/19 topical cream acetaminophen 500 mg capsule 1,000 mg PO QID PRN cap 01/19/19 03/23/19 apixaban 5 mg tablet 5 mg PO BID 01/19/19 03/23/19 apixaban 5 mg tablet 10 mg PO BID tab 01/19/19 03/22/19 bisacodyl 10 mg rectal suppository 10 mg PA DAILY PRN 01/19/19 03/23/19 Lantus Solostar U-100 Insulin 16 unit SUBCUT .QHS 02/16/19 03/23/19 carbidopa-levodopa 2 tab PO TID 02/16/19 03/23/19 insulin lispro [Humalog U-100 0 - 5 sliding scale dose SUBCUT 02/16/19 03/23/19 Insulin] DIRECTED loratadine [Claritin] 10 mg PO DAILY 02/16/19 03/26/19 Oxygen #1 each 03/22/19 03/22/19 albuterol sulfate 90 mcg/actuation 2 puff IH Q4H gm 03/22/19 03/23/19 aerosol inhaler dextrose 40 % oral gel 15 gm PO Q15M 03/22/19 03/23/19 glucagon (human recombinant) 1 1 mg SC ONCE 03/22/19 03/22/19 mg/mL solution for injection ipratropium-albuterol 0.5 mg-3 3 ml IH QID PRN 03/22/19 03/22/19 mg(2.5 mg base)/3 mL nebulization soln loperamide 2 mg capsule 2 mg PO Q6H PRN PRN cap 03/22/19 03/22/19 magnesium hydroxide 400 mg/5 mL 5 ml PO DAILY PRN 03/22/19 03/26/19 oral suspension magnesium oxide 420 mg tablet 400 mg PO DAILY tab 03/22/19 03/26/19 Fleet Enema 118 ml PA DIRECTED 03/23/19 03/23/19 Allergies Allergy/AdvReac Type Severity Reaction Status Date / Time aspirin Allergy Unknown Verified 03/26/19 18:42 indomethacin [From Indocin] Allergy Unknown Verified 03/26/19 18:42 latex Allergy Unknown Verified 03/26/19 18:42 General Stated Complaint: HeadInjury RACHEL: 3 Review of Systems Constitutional Reports as per HPI, Denies chills, Denies fatigue, Denies fever(s), Denies headache(s) and Reports weakness (baseline and unchanged, patient has frequent falls) Eyes Reports as per HPI, Denies blurry vision, Denies change in vision and Denies loss of vision ENT Denies abnormal hearing and Denies headache(s) Cardiovascular Reports as per HPI, Denies chest pain and Denies dyspnea Respiratory Reports as per HPI, Denies cough, Denies pain on inspiration, Denies pain with cough and Denies dyspnea Gastrointestinal Reports as per HPI, Denies abdominal pain, Denies nausea and Denies vomiting Musculoskeletal Reports as per HPI Integumentary/Breasts Reports as per HPI and Reports wounds Neurologic Reports as per HPI, Denies abnormal hearing, Denies abnormal movements, Denies abnormal speech, Denies headache(s), Denies lack of coordination, Denies focal weakness, Denies loss of vision, Denies seizure-like activity, Denies par esthesias and Reports weakness (baseline and unchanged, patient has frequent falls) Endocrine Denies fatigue [facility] Medical History Depression with anxiety (Acute) Diabetes (Chronic) Falls (Chronic) H/O ETOH abuse (Acute) Hypertension (Chronic) Insomnia (Acute) Obesity (Chronic) LULA (obstructive sleep apnea) (Chronic) Osteoarthritis (Chronic) Peripheral neuropathy (Chronic) PSP (progressive supranuclear palsy) (Chronic) PTSD (post-traumatic stress disorder) (Acute) Surgical History S/P cholecystectomy (Acute) Social History Smoking/Tobacco Use Status: Never Alcohol Intake: former Year quit: 2018 Drug use: Never Household members: spouse Housing: intermediate Number of Children: 3 current occupation: [employer] in [place]; 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 Do you feel safe at home: Yes Do you feel safe in your relationship?: Yes Additional Social history: [facility] Exam Const General: cooperative, comfortable, no acute distress, well developed and ill appearing chronically Nutritional Appearance: well nourished and overweight Orientation: alert, awake, oriented x3 and other (while patient is alert and oriented, he is staring off frequently) [facility] Head: normal to inspection, no palpable skull fracture, normocephalic and atraumatic Ears: hearing grossly normal bilaterally, external ears normal and TM's normal bilaterally General nose exam: external nose normal Face and sinus: abnormal facial exam (laceration as drawn below) Face images: 1. laceration, not actively bleeding, into subcutaneous tissue. No FB or debris noted Mouth: oral mucosae normal, lip normal and tongue normal Throat: posterior oropharynx normal Eyes General: appearance normal, both eyes and all related structures Visual Morgan: normal visual morgan by confrontation Alignment and Position: alignment normal Periorbital: periorbital findings normal Eyelids: eyelids normal Conjunctivae: conjunctivae normal Pupils: PERRL EOM: EOM intact bilaterally Neck Neck: normal visual inspection, full ROM, no lymphadenopathy, no meningeal signs, trachea midline and supple Chest Chest: normal inspection of the chest, normal palpation of entire chest wall, no crepitus and no localized rib tenderness Resp Effort & Inspection: normal respiratory effort, able to speak in complete sentences and no respiratory distress Auscultation: clear to auscultation bilaterally, no rales, no rhonchi and no wheezes Cardio Rate: regular rate Rhythm: regular rhythm Heart Sounds: S1 normal and S2 normal GI Inspection: normal to inspection, no abdominal wall ecchymosis, no edema and non-distended Palpation: soft, no hepatosplenomegaly, not firm, no guarding, no pulsatile masses, not rigid and nontender Auscultation: normal bowel sounds Back/Spine/Pelvis Back: no CVA tenderness Cervical Spine: normal cervical lordosis and cervical ROM normal Thoracic/Lumbar Spine: thoracic and lumbar spine normal to inspection, thoraco- lumbar ROM normal, No thoraco-lumbar ROM limited, No thoraco-lumbar spasm and No thoracic spinal tenderness Pelvis: no pain with anterior-posterior compression and no pain with lateral compression Skin Trauma: laceration (as above) Neuro General: alert, awake, oriented x3, gait normal, tone normal and moves all extremities Cranial Nerves: CN's II-XI intact bilaterally Cognition: normal cognition Speech: speech normal Motor: muscle tone normal throughout and strength 5/5 throughout Sensory Exam: no sensory deficits noted (no saddle paresthesias) Extrem General: normal to inspection, full ROM, normal capillary refill, no pedal edema and no calf tenderness Psych Appearance: grossly normal and well kempt Mental Status: mental status grossly normal Speech and Movement: speech and movement normal Course Vital Signs Temperature 36.5 C 03/26/19 17:25 Pulse 98 H 03/26/19 17:25 Respiratory Rate 18 03/26/19 17:25 Blood Pressure 121/78 03/26/19 17:25 Pulse Oximetry 96 03/26/19 17:25 Temperature 36.5 C 03/26/19 17:25 Temperature Source Temporal Artery Scan 03/26/19 17:25 Pulse 98 H 03/26/19 17:25 Respiratory Rate 18 03/26/19 17:25 Respiratory Effort Non-Labored 03/26/19 17:30 Blood Pressure 121/78 03/26/19 17:25 Blood Pressure Position Supine 03/26/19 17:25 Pulse Oximetry 96 03/26/19 17:25 Oxygen Delivery Method Room Air 03/26/19 17:25 Oxygen Flow Rate 0 03/26/19 17:25 Pain Level 0 03/26/19 17:25
--- NOTE | 2019-03-26 18:00 | DI.VRAD_ITS ---
EXAM: CT Head Without Contrast EXAM DATE/TIME: 03/26/2019 5:31 PM CLINICAL HISTORY: 68 years old, male; Other: Fall, struck lateral to left eye TECHNIQUE: Imaging protocol: Computed tomography images of the head without contrast. Radiation optimization: All CT scans at this facility use at least one of these dose optimization techniques: automated exposure control; mA and/or kV adjustment per patient size (includes targeted exams where dose is matched to clinical indication); or iterative reconstruction. COMPARISON: CT HEAD CERVICAL SPINE WO 02/16/2019 2:44 PM FINDINGS: Brain: Global cerebral atrophy is consistent with patient's age. Decreased attenuation within the white matter tracts of both cerebral hemispheres is nonspecific but typically seen with small vessel disease/chronic white matter ischemic changes of aging. No intracranial hemorrhage or mass effect. Ventricles: Unremarkable. No ventriculomegaly. Bones/joints: Unremarkable. No acute fracture. Sinuses: Visualized sinuses are unremarkable. No fluid levels. Mastoid air cells: Visualized mastoid air cells are well aerated. No mastoid effusion. Soft tissues: Unremarkable. IMPRESSION: No acute intracranial abnormality. Dictated and Authenticated by: Pramod Morel MD. Ordering:ERNESTINE Clark MD
== END 2019-03-26 19:15 | disposition home or self-care (01) ==
PROVIDERS: Emergency Provider Physician Assistant; PCP Internal Medicine
DX: S01.81XA Laceration without foreign body of other part of head, initial encounter (principal); E11.40 Type 2 diabetes mellitus with diabetic neuropathy, unspecified; Z79.4 Long term (current) use of insulin; Z79.01 Long term (current) use of anticoagulants
CPT/HCPCS: 12011; 99284; 70450

== ENCOUNTER 2019-03-29 12:44 | Outpatient (CLI) | payer MEDICARE, SELFPAY ==
[2019-03-29 14:53] LABS: TSH 0.54 uIU/mL (0.36-3.74); Vitamin B12 403 pg/mL (193-986)
== END 2019-03-29 13:04 ==
PROVIDERS: PCP Internal Medicine; Visit Provider Nurse Practitioner Adult Health
DX: M62.81 Muscle weakness (generalized) (principal); R26.89 Other abnormalities of gait and mobility; G23.1 Progressive supranuclear ophthalmoplegia [Steele-Richardson-Olszewski]
CPT/HCPCS: 36415; 82607; 84443

== ENCOUNTER 2019-04-12 09:32 | Outpatient (CLI) | payer MEDICARE, SELFPAY ==
[2019-04-12 10:37] LABS: Hemoglobin A1C 7.1 % (4.5-6.2)
== END 2019-04-12 09:52 ==
PROVIDERS: PCP Internal Medicine; Visit Provider Nurse Practitioner Adult Health
DX: E11.9 Type 2 diabetes mellitus without complications (principal)
CPT/HCPCS: 36415; 83036

== ENCOUNTER 2019-04-29 11:22 | Emergency (ER) | payer OTHER, SELFPAY ==
[2019-04-29 11:11] VITALS: BP 130/90; PULSE 84; RESP 22; TEMP 36.5; O2SAT 96
[2019-04-29 11:30] VITALS: BP 123/77; PULSE 84; RESP 22; O2SAT 97
--- NOTE | 2019-04-29 11:41 | DI.RAD_ITS ---
EXAM: XR CHEST 2V PA LATERAL INDICATION: fall, posterior pain. COMPARISON: XR CHEST 2V PA LATERAL from 02/18/2019 TECHNIQUE: 2D digital imaging was performed. FINDINGS: Heart is not enlarged. The lungs are clear. No pleural effusion seen. IMPRESSION: No evidence of acute intrapulmonary process.
--- NOTE | 2019-04-29 11:42 | ED.GENADUL_ITS ---
Discharge Plan Disposition Patient Disposition: [facility] Condition: Stable Discharge Details Chief Complaint: HeadInjury Clinical Impression: Contusion, PSP (progressive supranuclear palsy) Primary Care Provider: Marvin Washington ED Provider: Cortez Fitzgerald Home Meds and New Rx's Prescriptions: Continued GlucaGen Diagnostic Kit 1 mg/mL recon soln 1 mg SC ONCE RF: 0 dextrose [Dex4 Glucose] 40 % gel 15 gm PO Q15M RF: 0 ipratropium-albuterol 0.5 mg-3 mg(2.5 mg base)/3 mL solution for nebulization 3 ml IH QID PRNRF: 0 loperamide [Imodium A-D] 2 mg capsule 2 mg PO Q6H PRN PRNRF: 0 magnesium hydroxide [Milk of Magnesia] 400 mg/5 mL suspension 5 ml PO DAILY PRNRF: 0 (DME) Oxygen Tank See Rx Instructions .ROUTE .MEDSUPPLY Qty: 1 RF: 0 albuterol sulfate [Proventil HFA] 90 mcg/actuation HFA aerosol inhaler 2 puff IH Q4H RF: 0 cholecalciferol (vitamin D3) 1,000 unit capsule 1,000 unit PO DAILY RF: 0 fluoxetine 40 mg capsule 40 mg PO DAILY RF: 0 furosemide 40 mg tablet 40 mg PO DAILY RF: 0 guaifenesin 100 mg/5 mL liquid 100 mg PO QID PRNRF: 0 insulin glargine 100 unit/mL (3 mL) insulin pen 86 unit SC DAILY RF: 0 metformin 1,000 mg tablet 1,000 mg PO BID RF: 0 dimethicone-petrolatum 1-30 % cream TP PRN RF: 0 simvastatin 20 mg tablet 20 mg PO QHS RF: 0 terazosin 5 mg capsule 5 mg PO QHS RF: 0 triamcinolone acetonide 0.025 % cream 1 applic TP BID RF: 0 buprenorphine HCl 2 mg tablet, sublingual 2 mg SL DAILY RF: 0 buprenorphine HCl 8 mg tablet, sublingual 8 mg SL DAILY RF: 0 omeprazole 20 mg tablet,delayed release (DR/EC) 20 mg PO DAILY RF: 0 cyanocobalamin (vitamin B-12) 1,000 mcg tablet 1,000 mcg PO DAILY RF: 0 magnesium oxide 420 mg tablet 400 mg PO DAILY RF: 0 acetaminophen 500 mg capsule 1,000 mg PO QID PRNRF: 0 bisacodyl [Dulcolax (bisacodyl)] 10 mg suppository 10 mg CA DAILY PRNRF: 0 Eliquis 5 mg tablet 5 mg PO BID RF: 0 apixaban 5 mg tablet 10 mg PO BID RF: 0 insulin lispro [Humalog U-100 Insulin] 100 unit/mL Solution 0 - 5 sliding scale dose subcut DIRECTED RF: 0 carbidopa-levodopa 25-100 mg Tablet 2 tab PO TID RF: 0 loratadine [Claritin] 10 mg Tablet 10 mg PO DAILY RF: 0 Lantus Solostar U-100 Insulin 100 unit/mL (3 mL) Insulin Pen 16 unit SUBCUT .QHS RF: 0 Fleet Enema 19-7 gram/118 mL Enema 118 ml CA DIRECTED RF: 0 Discharge Instructions Instructions: Contusion in Adults (ED) Additional Instructions: You had an unremarkable CT scan of your head and cervical spine. You have a contusion and will likely develop some mild muscle soreness. You had chemistry and CBC obtained which were unremarkable. Continue your regular medications. Return for any acute concern Medical Decision Making 68-year-old male presents from [facility]. He has pre-standing gait instability due to progressive supranuclear palsy for which he uses a walker, he fell after tripping on a walker and struck his head and neck. No report of loss of consciousness. He is now improving. Referred for CT images of head and cervical spine, essentially cleared from precautions. His labs are reassuring. He is stable and appropriate for return to [facility] facility. HPI General Mode of arrival: EMS . Date/Time Provider Initiated Documentation: 04/29/19 11:41 . Information obtained by: patient and EMS . History of Present Illness 68 year old M presents to the emergency department with the chief complaint of Fall while using walker, posterior neck pain., described as mild, Quality is described as dull and constant, and is localized to the head and neck. Patient reports no radiation. Patient started experiencing this hour(s) and it has been constant. No relieving factors improve symptom(s), No exacerbating factors reported . Patient did receive the following treatments prior to arrival, none and other (C-collar) Related Data Home Medications Medication Instructions Recorded Confirmed buprenorphine HCl 2 mg sublingual 2 mg SL DAILY 01/11/19 04/29/19 tablet buprenorphine HCl 8 mg sublingual 8 mg SL DAILY 01/11/19 04/29/19 tablet cholecalciferol (vitamin D3) 1,000 1,000 unit PO DAILY 01/11/19 04/29/19 unit capsule cyanocobalamin (vitamin B-12) 1,000 mcg PO DAILY 01/11/19 04/29/19 1,000 mcg tablet dimethicone-petrolatum 1 %-30 % applic TP PRN 01/11/19 03/22/19 topical cream fluoxetine 40 mg capsule 40 mg PO DAILY 01/11/19 04/29/19 furosemide 40 mg tablet 40 mg PO DAILY 01/11/19 04/29/19 guaifenesin 100 mg/5 mL oral liquid 100 mg PO QID PRN ml 01/11/19 04/29/19 insulin glargine 100 unit/mL (3 86 unit SC DAILY ml 01/11/19 04/29/19 mL) subcutaneous pen metformin 1,000 mg tablet 1,000 mg PO BID 01/11/19 04/29/19 omeprazole 20 mg tablet,delayed 20 mg PO DAILY 01/11/19 04/29/19 release simvastatin 20 mg tablet 20 mg PO QHS 01/11/19 04/29/19 terazosin 5 mg capsule 5 mg PO QHS 01/11/19 04/29/19 triamcinolone acetonide 0.025 % 1 applic TP BID 01/11/19 04/29/19 topical cream acetaminophen 500 mg capsule 1,000 mg PO QID PRN cap 01/19/19 04/29/19 apixaban 5 mg tablet 5 mg PO BID 01/19/19 04/29/19 apixaban 5 mg tablet 10 mg PO BID tab 01/19/19 04/29/19 bisacodyl 10 mg rectal suppository 10 mg CA DAILY PRN 01/19/19 04/29/19 Lantus Solostar U-100 Insulin 16 unit SUBCUT .QHS 02/16/19 04/29/19 carbidopa-levodopa 2 tab PO TID 02/16/19 04/29/19 insulin lispro [Humalog U-100 0 - 5 sliding scale dose SUBCUT 02/16/19 04/29/19 Insulin] DIRECTED loratadine [Claritin] 10 mg PO DAILY 02/16/19 04/29/19 Oxygen #1 each 03/22/19 03/22/19 albuterol sulfate 90 mcg/actuation 2 puff IH Q4H gm 03/22/19 04/29/19 aerosol inhaler dextrose 40 % oral gel 15 gm PO Q15M 03/22/19 04/29/19 glucagon (human recombinant) 1 1 mg SC ONCE 03/22/19 04/29/19 mg/mL solution for injection ipratropium-albuterol 0.5 mg-3 3 ml IH QID PRN 03/22/19 04/29/19 mg(2.5 mg base)/3 mL nebulization soln loperamide 2 mg capsule 2 mg PO Q6H PRN PRN cap 03/22/19 04/29/19 magnesium hydroxide 400 mg/5 mL 5 ml PO DAILY PRN 03/22/19 04/29/19 oral suspension magnesium oxide 420 mg tablet 400 mg PO DAILY tab 03/22/19 04/29/19 Fleet Enema 118 ml CA DIRECTED 03/23/19 04/29/19 Allergies Allergy/AdvReac Type Severity Reaction Status Date / Time aspirin Allergy Unknown Verified 03/26/19 18:42 indomethacin [From Indocin] Allergy Unknown Verified 03/26/19 18:42 latex Allergy Unknown Verified 03/26/19 18:42 General Stated Complaint: HeadInjury RACHEL: 2 Review of Systems Review of Systems Narrative: Denies headache, loss of consciousness no numbness or weakness. 6 systems reviewed and otherwise negative [facility] Medical History Depression with anxiety (Acute) Diabetes (Chronic) Falls (Chronic) H/O ETOH abuse (Acute) Hypertension (Chronic) Insomnia (Acute) Obesity (Chronic) LULA (obstructive sleep apnea) (Chronic) Osteoarthritis (Chronic) Peripheral neuropathy (Chronic) PSP (progressive supranuclear palsy) (Chronic) PTSD (post-traumatic stress disorder) (Acute) Surgical History S/P cholecystectomy (Acute) Social History Smoking/Tobacco Use Status: Never Alcohol Intake: former Year quit: 2018 Drug use: Never Household members: spouse Housing: prison Number of Children: 3 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[place]; 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 Pleasant, well groomed, interactive. HEAD: Normocephalic, atraumatic ENT: Mucous membranes moist, oropharynx unremarkable, External ear exam unremarkable EYES: PERRL, EOMI NECK: In C-spine precautions. Mild lower tenderness to palpation without step- off or deformity. CHEST/RESP: Nontender, clear to auscultation bilateral, no wheeze/rhonchi/rales CARDIOVASCULAR: RRR, no murmur, rub carol. 2+ Rad pulse bilateral ABDOMEN: Soft, nontender, no mass. +Bowel sounds EXT: Full ROM, no edema, no rash Neuro: Interactive, no focal neurologic deficits Psych: Speech fluent, thoughts congruent, affect normal Course Vital Signs Vital signs: Vital Signs Temperature 36.5 C 04/29/19 11:11 Pulse 84 04/29/19 11:11 Respiratory Rate 22 04/29/19 11:11 Blood Pressure 130/90 04/29/19 11:11 Pulse Oximetry 96 04/29/19 11:11 Temperature 36.5 C 04/29/19 11:11 Temperature Source Skin 04/29/19 11:11 Pulse 84 04/29/19 11:30 Respiratory Rate 22 04/29/19 11:30 Respiratory Effort 04/29/19 11:25 Respiratory Depth Normal 04/29/19 11:21 Respiratory Pattern Normal 04/29/19 11:21 Blood Pressure 123/77 04/29/19 11:30 Blood Pressure Position Supine 04/29/19 11:11 Pulse Oximetry 97 04/29/19 11:30 Oxygen Delivery Method Room Air 04/29/19 11:30 Oxygen Flow Rate 0 04/29/19 11:30 Pain Level 6 04/29/19 11:11 Comment 04/29/19 11:11
[2019-04-29 12:13] LABS: Abs Immature Grans 0.02 k/cumm (0.0-0.09); Absolute Basophil Count 0.02 k/cumm (0.0-0.2); Absolute Eosinophil Count 0.16 k/cumm (0.0-0.7); Absolute Lymphocyte Count 2.96 k/cumm (1.2-3.4); Absolute Monocyte Count 0.77 k/cumm (0.11-0.7); Absolute Neutrophil Count 4.92 k/cumm (1.2-6.7); Basophils % 0.2; Eosinophils % 1.8; HGB 13.7 g/dL (13.5-17.5); Immature Grans % 0.2; Lymphocytes % 33.4; Mean Corp. HGB Concentration 35.1 g/dL (32.0-36.0); Mean Corpuscular Hemoglobin 30.9 pg (27.0-33.0); Mean Platelet Volume 9.1 fL (8.0-11.0); Monocytes % 8.7; Neutrophils % 55.7; Platelet Count 297 x1000/uL (130-400); RBC 4.43 m/cumm (4.50-6.00); RBC Distribution Width 14.2 % (11.8-14.1); White Blood Cell Count 8.85 k/cumm (4.4-10.8)
[2019-04-29 12:30] LABS: INR 1.1 (0.9-1.1); Prothrombin Time 11.1 sec (9.3-11.0)
[2019-04-29 12:38] LABS: ALT 16 U/L (16-63); AST 12 U/L (15-37); Albumin 3.7 g/dL (3.4-5.0); Alkaline Phosphatase 66 U/L (46-116); Anion Gap 10.2 mmol/L (3-11); BUN 13 mg/dL (7-18); Bilirubin, Total 0.3 mg/dL (0.2-1.0); CO2 24.8 mmol/L (21.0-32.0); CREATININE 0.59 mg/dL (0.70-1.30); Calcium 9.2 mg/dL (8.5-10.1); Chloride 104 mmol/L (98-107); Glucose 170 mg/dL (70-100); Potassium 4.3 mmol/L (3.5-5.1); Sodium 139 mmol/L (136-145); Total Protein 7.2 g/dL (6.4-8.2)
--- NOTE | 2019-04-29 13:08 | DI.CT_ITS ---
EXAM: CT HEAD CERVICAL SPINE WO CLINICAL HISTORY: Fall, posterior pain. TECHNIQUE: COMPARISON: CT HEAD WO from 03/26/2019 FINDINGS: CT examination cervical spine was performed utilizing multi slice acquisition and multiplanar reconst ruction. Images obtained through the lung apices are unremarkable. Tracheolaryngeal structures appe ar intact. No evidence of cervical mass or adenopathy. There are degenerative changes involving fac et joints and vertebral endplates throughout the cervical region. No evidence of acute fracture or d islocation. There is moderate generalized cerebral atrophy and there are patchy areas of decreased attenuation pe riventricular white matter consistent with microvascular ischemic changes. No evidence of acute intr acranial hemorrhage mass effect or midline shift. The orbital and temporal bone structures appear in tact. Paranasal sinuses and mastoid air cells are well aerated as visualized. IMPRESSION: No evidence of acute cervical fracture No evidence of acute intracranial injury
[2019-04-29 13:30] VITALS: BP 113/83; PULSE 89; RESP 18; TEMP 36.3; O2SAT 99
== END 2019-04-29 14:26 | disposition intermediate care facility (04) ==
LOC: ER 13:22
PROVIDERS: Emergency Provider Emergency Medicine; PCP Internal Medicine
DX: S10.83XA Contusion of other specified part of neck, initial encounter (principal); G23.1 Progressive supranuclear ophthalmoplegia [Steele-Richardson-Olszewski]; W01.0XXA Fall on same level from slipping, tripping and stumbling without subsequent striking against object, initial encounter; E11.9 Type 2 diabetes mellitus without complications; I10 Essential (primary) hypertension; Z79.4 Long term (current) use of insulin
CPT/HCPCS: 36415; 80053; 99284; 70450; 71046; 72125; 85025; 85610

== ENCOUNTER 2019-05-08 20:20 | Emergency (ER) | payer OTHER, SELFPAY ==
[2019-05-08 20:05] VITALS: BP 114/75; PULSE 94; RESP 16; TEMP 36.5; O2SAT 95
--- NOTE | 2019-05-08 20:20 | DI.CT_ITS ---
EXAM: CT HEAD CERVICAL SPINE WO CLINICAL HISTORY: s/p fall, r/o intracranial inj/cerv fx. TECHNIQUE: The exam was performed according to the usual protocol. COMPARISON: CT HEAD CERVICAL SPINE WO from 04/29/2019 FINDINGS: CT examination cervical spine: There is moderate degenerative change of the facet joints and vertebr al endplates. No evidence of acute fracture or dislocation. Visualized tracheolaryngeal structures appear intact. Cranial CT: There is moderate generalized cerebral atrophy. There is no evidence of acute intracrani al hemorrhage, mass effect or midline shift. No calvarial fracture identified. Visualized paranasal sinuses and mastoid air cells are clear. Orbital and temporal bone structures appear intact. IMPRESSION: No evidence of acute intracranial injury. I would note that the ventricular system is somewhat promin ently dilated relative to the degree of cortical atrophy, normal pressure hydrocephalus not excluded, please correlate clinically.
--- NOTE | 2019-05-08 20:20 | DI.RAD_ITS ---
EXAM: XR HUMERUS RT INDICATION: s/p fall, abrasion R arm; r/o acute fracture. COMPARISON: No exams were available for comparison TECHNIQUE: 2D digital imaging was performed. FINDINGS: Three views were obtained. No evidence acute fracture. IMPRESSION:
--- NOTE | 2019-05-08 20:22 | ED.GENADUL_ITS ---
Discharge Plan Disposition Patient Disposition: HOME Condition: Improving Discharge Details Chief Complaint: HeadInjury Clinical Impression: Closed head injury without loss of consciousness, Abrasion of right arm Primary Care Provider: Marvin Washington ED Provider: Carley Roberts Home Meds and New Rx's Prescriptions: Continued dextrose [Dex4 Glucose] 40 % gel 15 gm PO Q15M RF: 0 ipratropium-albuterol 0.5 mg-3 mg(2.5 mg base)/3 mL solution for nebulization 3 ml IH QID PRNRF: 0 loperamide [Imodium A-D] 2 mg capsule 2 mg PO Q6H PRN PRNRF: 0 (DME) Oxygen Tank See Rx Instructions .ROUTE .MEDSUPPLY Qty: 1 RF: 0 albuterol sulfate [Proventil HFA] 90 mcg/actuation HFA aerosol inhaler 2 puff IH Q4H RF: 0 fluoxetine 40 mg capsule 40 mg PO DAILY RF: 0 furosemide 40 mg tablet 40 mg PO DAILY RF: 0 guaifenesin 100 mg/5 mL liquid 100 mg PO QID PRNRF: 0 metformin 1,000 mg tablet 1,000 mg PO BID RF: 0 simvastatin 20 mg tablet 20 mg PO QHS RF: 0 triamcinolone acetonide 0.025 % cream 1 applic TP BID RF: 0 omeprazole 20 mg tablet,delayed release (DR/EC) 20 mg PO DAILY RF: 0 magnesium oxide 420 mg tablet 400 mg PO DAILY RF: 0 acetaminophen 325 mg tablet 650 mg PO Q6H RF: 0 magnesium hydroxide 400 mg/5 mL suspension 30 ml PO QHS PRNRF: 0 bisacodyl [Dulcolax (bisacodyl)] 10 mg suppository 10 mg ME DAILY PRNRF: 0 Eliquis 5 mg tablet 5 mg PO BID RF: 0 insulin lispro [Humalog U-100 Insulin] 100 unit/mL Solution 0 - 5 sliding scale dose subcut DIRECTED RF: 0 carbidopa-levodopa 25-100 mg Tablet 2 tab PO TID RF: 0 loratadine [Claritin] 10 mg Tablet 10 mg PO DAILY RF: 0 Lantus Solostar U-100 Insulin 100 unit/mL (3 mL) Insulin Pen 16 unit SUBCUT .QHS RF: 0 Fleet Enema 19-7 gram/118 mL Enema 118 ml ME DIRECTED RF: 0 Discharge Instructions Instructions: Head Injury (ED), Abrasion (ED) Additional Instructions: Take tylenol as needed and directed for pain. Drink plenty of fluids and get plenty of rest. Follow up with the primary care doctor in the next 2 days for re-evaluation. Return to the emergency department with any worsening or new concerning symptoms. Discharge Data Discharge Date/Time-TO BE ENTERED AT DEPARTURE: 05/08/19 22:45 Discharge Physician: Carley Roberts Medical Decision Making 68-year-old male with a history of depression, anxiety, diabetes, hypertension, hyperlipidemia, progressive supranuclear palsy, PTSD, pulmonary embolism on Eliquis presents with headache and grogginess status post mechanical fall and head injury today. Denies LOC, vomiting, neck pain. He does admit to right upper arm and elbow pain. Vitals within normal limits. He appears comfortable and in no acute distress. No focal deficits. He has a right upper arm abrasion. We will send for CT head and cervical spine and right humerus x-ray. CT head negative for acute bleed or injury, CT cervical spine negative, x-ray negative for acute fracture. Patient states he feels better and feels good to go back to rehab. Advised to rest, drink fluids, take Tylenol as needed. Advised to follow-up with primary care doctor and return here at any time if worse. Medical Records Medical records reviewed: Yes I reviewed the patient's medical records. Imaging Data Radiologic Study: Radiologist's impression: CT Head Without Contrast Exam date and time: 05/08/2019 8:55 PM Clinical history: 68 years old, male; Injury or trauma; Initial encounter; Blunt trauma (contusions or hematomas); Consciousness not specified; Injury date: 05/08/19; Injury details: Fall, unknown details TECHNIQUE: Imaging protocol: Computed tomography of the head without contrast. Radiation optimization: All CT scans at this facility use at least one of these dose optimization techniques: automated exposure control; mA and/or kV adjustment per patient size (includes targeted exams where dose is matched to clinical indication); or iterative reconstruction. COMPARISON: CT HEAD CERVICAL SPINE WO 04/29/2019 12:53 PM FINDINGS: Brain: No evidence for acute transcortical infarct. No mass effect or midline shift. No extra-axial collection. No acute intracranial hemorrhage. Basal cisterns are patent. Ventricles: Dilatation of the ventricles out of proportion to the degree of cortical atrophy, which can be seen in central greater than peripheral atrophy versus normal pressure hydrocephalus. Bones/joints: Unremarkable. No acute fracture. Sinuses: Visualized sinuses are unremarkable. No fluid levels. Mastoid air cells: Visualized mastoid air cells are well aerated. Soft tissues: Unremarkable. IMPRESSION: 1. No evidence for acute transcortical infarct, acute intracranial hemorrhage, or mass effect. 2. Dilatation of the ventricles out of proportion to the degree of cortical atrophy, which can be seen in central greater than peripheral atrophy versus normal pressure hydrocephalus. CT Cervical Spine Without Contrast Exam date and time: 05/08/2019 8:55 PM Clinical history: 68 years old, male; Injury or trauma; Initial encounter; Blunt trauma (contusions or hematomas); Consciousness not specified; Injury date: 05/08/19; Injury details: Fall, unknown details TECHNIQUE: Imaging protocol: Computed tomography images of the cervical spine without contrast. Radiation optimization: All CT scans at this facility use at least one of these dose optimization techniques: automated exposure control; mA and/or kV adjustment per patient size (includes targeted exams where dose is matched to clinical indication); or iterative reconstruction. COMPARISON: CT HEAD CERVICAL SPINE WO 04/29/2019 12:53 PM FINDINGS: Vertebrae: No acute fracture or traumatic subluxation. No spondylolisthesis. The atlantooccipital and atlantoaxial articulations are intact. Facet joint alignments are maintained. Discs/Spinal canal/Neural foramina: Age-related degenerative disc disease. Multilevel degenerative changes of the cervical spine. Other bones/joints: Occipital condyles are intact. Prevertebral Space: No prevertebral soft tissue swelling. Soft tissues: Unremarkable. Lungs: Lung apices are normal. IMPRESSION: No acute fracture or traumatic subluxation. XR Right Humerus Exam date and time: 05/08/2019 9:12 PM Clinical history: 68 years old, male; Injury or trauma; Initial encounter; Blunt trauma (contusions or hematomas; Arm, upper; Right; Injury date: 05/08/19; Injury details: Fall, unknown details, unable to answer questions; Prior surgery; Surgery date: 6+ months; Surgery type: Shoulder surgery, unknown date TECHNIQUE: Imaging protocol: XR Right humerus Views: 2 or more views. COMPARISON: No relevant prior studies available. FINDINGS: Bones/joints: Joint spaces are narrowed. Chronic appearing Hill-Sachs deformity. No acute fracture or dislocation. Soft tissues: No radiopaque foreign body. IMPRESSION: Chronic appearing Hill-Sachs deformity. No acute fracture or dislocation. Lab Data Lab results reviewed: Yes I reviewed the patient's lab results. HPI General Mode of arrival: EMS . Date/Time Provider Initiated Documentation: 05/08/19 20:25 . Limitations to Documentation: physical limitation . Information obtained by: patient . HPI Narrative: Patient is a 68-year-old male with a history of anxiety, depression, diabetes, progressive supranuclear palsy, PTSD, pulmonary embolism on Eliquis who presents status post head injury today. Patient states he was standing when he tripped over a chair and fell backward hitting the back of his head on a table. Denies LOC, vomiting, neck pain, or dizziness. He states he was initially evaluated by EMS but declined transport. He states his headache and grogginess persisted and he requested transport to the ER. He also states he has some right arm and elbow pain. Has not taken any pain medication prior to arrival. He can normally ambulate with a walker. Related Data Home Medications Medication Instructions Recorded Confirmed fluoxetine 40 mg capsule 40 mg PO DAILY 01/11/19 05/08/19 furosemide 40 mg tablet 40 mg PO DAILY 01/11/19 05/08/19 guaifenesin 100 mg/5 mL oral liquid 100 mg PO QID PRN ml 01/11/19 05/08/19 metformin 1,000 mg tablet 1,000 mg PO BID 01/11/19 05/08/19 omeprazole 20 mg tablet,delayed 20 mg PO DAILY 01/11/19 05/08/19 release simvastatin 20 mg tablet 20 mg PO QHS 01/11/19 05/08/19 triamcinolone acetonide 0.025 % 1 applic TP BID 01/11/19 05/08/19 topical cream apixaban 5 mg tablet 5 mg PO BID 01/19/19 05/08/19 bisacodyl 10 mg rectal suppository 10 mg ME DAILY PRN 01/19/19 05/08/19 Lantus Solostar U-100 Insulin 16 unit SUBCUT .QHS 02/16/19 05/08/19 carbidopa-levodopa 2 tab PO TID 02/16/19 05/08/19 insulin lispro [Humalog U-100 0 - 5 sliding scale dose SUBCUT 02/16/19 05/08/19 Insulin] DIRECTED loratadine [Claritin] 10 mg PO DAILY 02/16/19 05/08/19 Oxygen #1 each 03/22/19 05/08/19 albuterol sulfate 90 mcg/actuation 2 puff IH Q4H gm 03/22/19 05/08/19 aerosol inhaler dextrose 40 % oral gel 15 gm PO Q15M 03/22/19 05/08/19 ipratropium-albuterol 0.5 mg-3 3 ml IH QID PRN 03/22/19 05/08/19 mg(2.5 mg base)/3 mL nebulization soln loperamide 2 mg capsule 2 mg PO Q6H PRN PRN cap 03/22/19 05/08/19 magnesium oxide 420 mg tablet 400 mg PO DAILY tab 03/22/19 05/08/19 Fleet Enema 118 ml ME DIRECTED 03/23/19 05/08/19 acetaminophen 325 mg tablet 650 mg PO Q6H tab 05/04/19 05/08/19 magnesium hydroxide 400 mg/5 mL 30 ml PO QHS PRN ml 05/04/19 05/08/19 oral suspension Allergies Allergy/AdvReac Type Severity Reaction Status Date / Time aspirin Allergy Unknown Verified 05/04/19 10:45 indomethacin [From Indocin] Allergy Unknown Verified 05/04/19 10:45 latex Allergy Unknown Verified 05/04/19 10:45 General Stated Complaint: HeadInjury RACHEL: 3 Review of Systems Review of Systems ROS Unobtainable: All systems reviewed & are unremarkable except as noted in HPI and below Constitutional Constitutional: Reports as per HPI, Denies chills, Denies fever(s) and Reports headache(s) Eyes Eyes: Denies blurry vision ENT Ears, Nose, Mouth, and Throat: Denies dizziness, Reports headache(s), Denies sore throat and Denies throat swelling Cardiovascular Cardiovascular: Denies chest pain and Denies dyspnea Respiratory Respiratory: Denies cough and Denies dyspnea Gastrointestinal Gastrointestinal: Denies abdominal pain, Denies diarrhea and Denies vomiting Genitourinary Genitourinary: Denies hematuria and Denies dysuria Musculoskeletal Musculoskeletal: Denies back pain and Denies numbness Comments: R elbow pain Integumentary/Breasts Skin/Breast: Denies lesions and Denies rash Neurologic Neurologic: Denies dizziness, Reports headache(s), Denies focal weakness and Denies numbness Allergic/Immunologic Allergic/Immunologic: Denies throat swelling [facility] Medical History Colonic polyp (Acute) Depression with anxiety (Acute) Diabetes (Chronic) Falls (Chronic) H/O ETOH abuse (Acute) Hyperlipidemia (Acute) Hypertension (Chronic) Insomnia (Acute) Obesity (Chronic) LULA (obstructive sleep apnea) (Chronic) Osteoarthritis (Chronic) Peripheral neuropathy (Chronic) PSP (progressive supranuclear palsy) (Chronic) PTSD (post-traumatic stress disorder) (Acute) Pulmonary embolism (Chronic) Sedative abuse (Acute) Shortness of breath (Acute) Surgical History S/P cholecystectomy (Acute) Social History Smoking/Tobacco Use Status: Never Alcohol Intake: former Year quit: 2018 Drug use: Never Household members: spouse Housing: fpc Number of Children: 3 current occupation: [employer] in [place]; 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 Do you feel safe at home: Yes Do you feel safe in your relationship?: Yes Additional Social history: [facility] Exam Const General: cooperative and healthy appearing Orientation: alert and awake HENMT Head: normal to inspection Ears: hearing grossly normal bilaterally, external ears normal and TM's normal bilaterally General nose exam: external nose normal Face and sinus: normal facial exam Mouth: oral mucosae normal Teeth and gingiva: dentition normal Throat: posterior oropharynx normal Eyes General: appearance normal, both eyes and all related structures Eyelids: eyelids normal Pupils: PERRL EOM: EOM intact bilaterally Neck Neck: normal visual inspection Lymphatic: no lymphadenopathy noted Chest Chest: normal inspection of the chest, normal palpation of entire chest wall and no tenderness Resp Effort & Inspection: normal respiratory effort and able to speak in complete sentences Auscultation: clear to auscultation bilaterally Cardio Rate: regular rate Rhythm: regular rhythm GI Inspection: normal to inspection and no abdominal wall ecchymosis Palpation: soft, not firm, no guarding, no hepatosplenomegaly, no masses and nontender Auscultation: normal bowel sounds Back/Spine/Pelvis Back: no CVA tenderness Cervical Spine: No cervical spinal tenderness Thoracic/Lumbar Spine: thoracic and lumbar spine normal to inspection, No thoracic spinal tenderness and No lumbar spinal tenderness Skin General skin exam: no rashes or lesions noted Neuro General: alert, awake, moves all extremities, no meningeal signs and no focal motor deficits Cranial Nerves: CN's II-XI intact bilaterally Cognition: normal cognition Speech: speech normal Motor: muscle tone normal throughout and strength 5/5 throughout Sensory Exam: no sensory deficits noted Extrem Other: Superficial abrasion R posterior upper arm w/o edema, ecchymoses, erythema. No pain with ROM of R shoulder or R elbow. No tenderness to palpation R elbow or R wrist. R radial pulse intact. Normal ROM b/l upper/lower extremities. Chronic skin changes b/l lower extremities with venous stasis, induration and nonpitting edema. Psych Appearance: grossly normal Mental Status: mental status grossly normal Speech and Movement: speech and movement normal Affect: normal affect Thought Process: normal Course Vital Signs Vital signs: Vital Signs Temperature 97.7 F 05/08/19 20:05 Pulse 94 H 05/08/19 20:05 Respiratory Rate 16 05/08/19 20:05 Blood Pressure 114/75 05/08/19 20:05 Pulse Oximetry 95 05/08/19 20:05 Temperature 97.7 F 05/08/19 20:05 Temperature Source Skin 05/08/19 20:05 Pulse 94 H 05/08/19 20:05 Respiratory Rate 16 05/08/19 20:05 Respiratory Effort Non-Labored 05/08/19 20:07 Respiratory Depth Normal 05/08/19 20:07 Respiratory Pattern Normal 05/08/19 20:07 Blood Pressure 114/75 05/08/19 20:05 Pulse Oximetry 95 05/08/19 20:05 Pain Level 7 05/08/19 20:07
[2019-05-08 20:35] VITALS: BP 54/34; PULSE 69; PULSE 83; RESP 23
[2019-05-08 21:08] VITALS: BP 102/77; PULSE 84; PULSE 86; RESP 19; O2SAT 98
[2019-05-08] MEDS: Acetaminophen 500 MG TAB 1000 MG PO (21:15)
--- NOTE | 2019-05-08 21:53 | DI.VRAD_ITS ---
PROCEDURE INFORMATION: Exam: XR Right Humerus Exam date and time: 05/08/2019 9:12 PM Clinical history: 68 years old, male; Injury or trauma; Initial encounter; Blunt trauma (contusions or hematomas; Arm, upper; Right; Injury date: 05/08/19; Injury details: Fall, unknown details, unable to answer questions; Prior surgery; Surgery date: 6+ months; Surgery type: Shoulder surgery, unknown date TECHNIQUE: Imaging protocol: XR Right humerus Views: 2 or more views. COMPARISON: No relevant prior studies available. FINDINGS: Bones/joints: Joint spaces are narrowed. Chronic appearing Hill-Sachs deformity. No acute fracture or dislocation. Soft tissues: No radiopaque foreign body. IMPRESSION: Chronic appearing Hill-Sachs deformity. No acute fracture or dislocation. Dictated and Authenticated by: Deshaun Farias MD. Ordering:MINO Howe MD
--- NOTE | 2019-05-08 21:59 | DI.VRAD_ITS ---
PROCEDURE INFORMATION: Exam: CT Head Without Contrast Exam date and time: 05/08/2019 8:55 PM Clinical history: 68 years old, male; Injury or trauma; Initial encounter; Blunt trauma (contusions or hematomas); Consciousness not specified; Injury date: 05/08/19; Injury details: Fall, unknown details TECHNIQUE: Imaging protocol: Computed tomography of the head without contrast. Radiation optimization: All CT scans at this facility use at least one of these dose optimization techniques: automated exposure control; mA and/or kV adjustment per patient size (includes targeted exams where dose is matched to clinical indication); or iterative reconstruction. COMPARISON: CT HEAD CERVICAL SPINE WO 04/29/2019 12:53 PM FINDINGS: Brain: No evidence for acute transcortical infarct. No mass effect or midline shift. No extra-axial collection. No acute intracranial hemorrhage. Basal cisterns are patent. Ventricles: Dilatation of the ventricles out of proportion to the degree of cortical atrophy, which can be seen in central greater than peripheral atrophy versus normal pressure hydrocephalus. Bones/joints: Unremarkable. No acute fracture. Sinuses: Visualized sinuses are unremarkable. No fluid levels. Mastoid air cells: Visualized mastoid air cells are well aerated. Soft tissues: Unremarkable. IMPRESSION: 1. No evidence for acute transcortical infarct, acute intracranial hemorrhage, or mass effect. 2. Dilatation of the ventricles out of proportion to the degree of cortical atrophy, which can be seen in central greater than peripheral atrophy versus normal pressure hydrocephalus. PROCEDURE INFORMATION: Exam: CT Cervical Spine Without Contrast Exam date and time: 05/08/2019 8:55 PM Clinical history: 68 years old, male; Injury or trauma; Initial encounter; Blunt trauma (contusions or hematomas); Consciousness not specified; Injury date: 05/08/19; Injury details: Fall, unknown details TECHNIQUE: Imaging protocol: Computed tomography images of the cervical spine without contrast. Radiation optimization: All CT scans at this facility use at least one of these dose optimization techniques: automated exposure control; mA and/or kV adjustment per patient size (includes targeted exams where dose is matched to clinical indication); or iterative reconstruction. COMPARISON: CT HEAD CERVICAL SPINE WO 04/29/2019 12:53 PM FINDINGS: Vertebrae: No acute fracture or traumatic subluxation. No spondylolisthesis. The atlantooccipital and atlantoaxial articulations are intact. Facet joint alignments are maintained. Discs/Spinal canal/Neural foramina: Age-related degenerative disc disease. Multilevel degenerative changes of the cervical spine. Other bones/joints: Occipital condyles are intact. Prevertebral Space: No prevertebral soft tissue swelling. Soft tissues: Unremarkable. Lungs: Lung apices are normal. IMPRESSION: No acute fracture or traumatic subluxation. Dictated and Authenticated by: Deshaun Farias MD. Ordering:MINO Howe MD
[2019-05-08 22:17] VITALS: BP 128/84; PULSE 86; PULSE 89; RESP 20
== END 2019-05-08 22:45 | disposition home or self-care (01) ==
PROVIDERS: Emergency Provider Physician Assistant; PCP Internal Medicine
DX: S06.0X0A Concussion without loss of consciousness, initial encounter (principal); S40.811A Abrasion of right upper arm, initial encounter; W01.0XXA Fall on same level from slipping, tripping and stumbling without subsequent striking against object, initial encounter; I10 Essential (primary) hypertension; E11.9 Type 2 diabetes mellitus without complications; Z79.01 Long term (current) use of anticoagulants
CPT/HCPCS: 99284; 70450; 72125; 73060

== ENCOUNTER 2019-07-20 10:54 | Outpatient (CLI) | payer OTHER, SELFPAY ==
--- NOTE | 2019-07-20 11:05 | DI.RAD_ITS ---
EXAM: XR SHOULDER RT COMPLETE 2+V INDICATION: right shoulder pain. COMPARISON: XR HUMERUS RT from 05/08/2019 TECHNIQUE: 2D digital imaging was performed. FINDINGS: There has been a previous distal clavicular resection. There is spurring at the undersurface of the acromion and greater and lesser tuberosities. There is a calcification adjacent to the lesser tubero sity. The glenohumeral joint space is well maintained. There is spurring at the glenoid. IMPRESSION: Postsurgical and degenerative changes.
== END 2019-07-20 11:14 ==
PROVIDERS: PCP Internal Medicine; Visit Provider Physician Assistant
DX: M25.511 Pain in right shoulder (principal); M19.011 Primary osteoarthritis, right shoulder; Z98.890 Other specified postprocedural states
CPT/HCPCS: 73030

== ENCOUNTER 2019-07-24 12:16 | Emergency (ER) | payer OTHER, SELFPAY ==
[2019-07-24] VITALS (10 sets, daily range): BP systolic 117–121; BP diastolic 54–80; PULSE 85–99; RESP 16–24; TEMP 36.6; O2SAT 93–99
--- NOTE | 2019-07-24 12:27 | W.ED.GENAD ---
Discharge Plan Disposition Patient Disposition: SNF (LEVEL 1) [facility] Condition: Good Discharge Details Chief Complaint: GenMedical Clinical Impression: Fall, Contusion of face, Left thumb sprain Primary Care Provider: Marvin Washington ED Provider: Tim Oconnell Home Meds and New Rx's Prescriptions: No Action dextrose [Dex4 Glucose] 40 % gel 15 gm PO Q15M RF: 0 ipratropium-albuterol 0.5 mg-3 mg(2.5 mg base)/3 mL solution for nebulization 3 ml IH QID PRNRF: 0 loperamide [Imodium A-D] 2 mg capsule 2 mg PO Q6H PRN PRNRF: 0 (DME) Oxygen Tank See Rx Instructions .ROUTE .MEDSUPPLY Qty: 1 RF: 0 albuterol sulfate [Proventil HFA] 90 mcg/actuation HFA aerosol inhaler 2 puff IH Q4H RF: 0 fluoxetine 40 mg capsule 40 mg PO DAILY RF: 0 furosemide 40 mg tablet 40 mg PO DAILY RF: 0 guaifenesin 100 mg/5 mL liquid 100 mg PO QID PRNRF: 0 metformin 1,000 mg tablet 1,000 mg PO BID RF: 0 simvastatin 20 mg tablet 20 mg PO QHS RF: 0 triamcinolone acetonide 0.025 % cream 1 applic TP BID RF: 0 omeprazole 20 mg tablet,delayed release (DR/EC) 20 mg PO DAILY RF: 0 magnesium oxide 420 mg tablet 400 mg PO DAILY RF: 0 acetaminophen 325 mg tablet 650 mg PO Q6H RF: 0 magnesium hydroxide 400 mg/5 mL suspension 30 ml PO QHS PRNRF: 0 bisacodyl [Dulcolax (bisacodyl)] 10 mg suppository 10 mg MD DAILY PRNRF: 0 Eliquis 5 mg tablet 5 mg PO BID RF: 0 insulin lispro [Humalog U-100 Insulin] 100 unit/mL Solution 0 - 5 sliding scale dose subcut DIRECTED RF: 0 carbidopa-levodopa 25-100 mg Tablet 2 tab PO TID RF: 0 loratadine [Claritin] 10 mg Tablet 10 mg PO DAILY RF: 0 Lantus Solostar U-100 Insulin 100 unit/mL (3 mL) Insulin Pen 16 unit SUBCUT .QHS RF: 0 Fleet Enema 19-7 gram/118 mL Enema 118 ml MD DIRECTED RF: 0 Discharge Instructions Instructions: Contusion in Adults (ED) Additional Instructions: At this time there is no evidence of bleed or fracture in your brain hit her face. Your thumb is also not fractured I suspect it is notably sprained. Please keep the splint on for the next 1 to 2 weeks. Please apply cool compresses to your brow to help reduce the swelling. If you notice any worsening of your symptoms, or any new symptoms such as vomiting, diarrhea, fever, chills, shortness of breath, chest pain, numbness, weakness, or fainting , please return immediately to the emergency department for reevaluation. Please follow up with your primary care provider as soon as possible for reassessment and reevaluation. As always, it was a pleasure participating in your medical care today. Referrals: Marvin Washington [Primary Care Provider] - Discharge Data Discharge Date/Time-TO BE ENTERED AT DEPARTURE: 07/24/19 13:43 Medical Decision Making 68-year-old male with a history of depression, anxiety, diabetes, hypertension, hyperlipidemia, progressive supranuclear palsy, PTSD, pulmonary embolism on Eliquis, chronic slurred speech who presents today for evaluation of fall. [facility] secondary to multiple falls that he was having at home. On the weekends he goes to his 's house, and at 7 AM while there today he fell and hit his left frontal brow as well as his left thumb. He presents 3 hours later after returning to [facility] for further evaluation. He has notable bruise on his left brow and his left arm. He complains of pain in these 2 locations, but no pain in any other place. We did contact the and per her when he fell and hit his head he had no loss of consciousness and he was able to get up without difficulty. describe no changes after the event. Physical exam demonstrates mild to moderate bruising over the left thumb, no evidence of deformity though. Mild to moderate bruising over the left brow as well, no evidence of intraocular entrapment. Neurologic exam is unremarkable, visual acuity is equal bilaterally with no evidence of visual compromise. CT scan was ordered of the head and neck as well as x-ray of the thumb. Per radiology there is no evidence of acute process. We did contact the patient's a second time, did discuss the patient's physical exam as well as mental status with her. She states that this is his baseline, and that there are no changes. At this time with no evidence of acute process, will place the patient in a left thumb spica for his mild pain of his left thumb. He will return to [facility]. No evidence of acute intracranial bleed or fracture. I have extensively reviewed the treatment plan and discharge instructions with the patient. I have addressed all patient concerns at this time. The patient was made aware of what symptoms to monitor for that would warrant a return to the emergency department. Discussed the plan with the patient, they demonstrate verbal understanding and agreement with our assessment and plan at this time. FINDINGS: Brain: Stable small vessel ischemic white matter changes of aging. No acute intracranial hemorrhage. No large territory infarct. Ventricles: Stable ventricular megaly. Bones/joints: Unremarkable. No acute fracture. Sinuses: Visualized sinuses are unremarkable. No fluid levels. Mastoid air cells: Visualized mastoid air cells are well aerated. Soft tissues: Soft tissue swelling over the left forehead and left orbit. IMPRESSION: 1. No acute intracranial abnormality. 2. Soft tissue swelling over left forehead and orbit. FINDINGS: Vertebrae: No acute fracture. Normal alignment. Age-related multilevel degenerative changes of the cervical spine. C2-C3: [No fracture. No spinal stenosis. Asymmetric narrowing of the left neural foramen. C3-C4: No fracture. No spinal stenosis. Bilateral facet arthropathy with narrowing of the neural foramen. C4-C5: No fracture. No spinal stenosis. Bilateral facet arthropathy with narrowing of the neural foramen. C5-C6: No fracture. No spinal stenosis. Facet arthropathy with asymmetric left neural foraminal stenosis. C6-C7: No fracture. No spinal stenosis. No neural foraminal narrowing. C7-T1: No fracture. No spinal stenosis. No neural foraminal narrowing. Soft tissues: Unremarkable. Lungs: Biapical pleural scarring. Right emphysematous changes. IMPRESSION: No acute findings. Thank you for allowing us to participate in the care of your patient. Dictated and Authenticated by: Zeny Ravi MD 07/24/2019 1:10 PM Eastern Time ([place] & [place]) FINDINGS: Bones/joints: Unremarkable. Soft tissues: Unremarkable. IMPRESSION: No evidence for acute bony injury. If clinical symptoms persist recommend followup film in 7-10 days. Thank you for allowing us to participate in the care of your patient. Dictated and Authenticated by: Zeny Ravi MD 07/24/2019 1:11 PM Eastern Time ([place] & [place]) HPI General Date/Time Provider Initiated Documentation: 07/24/19 12:17. HPI Narrative: 68-year-old male with a history of depression, anxiety, diabetes, hypertension, hyperlipidemia, progressive supranuclear palsy, PTSD, pulmonary embolism on Eliquis, chronic slurred speech who presents today for evaluation of fall. He is currently at [facility] secondary to multiple falls that he was having at home. On the weekends he goes to his 's house, and at 7 AM while there today he fell and hit his left frontal brow as well as his left thumb. He presents 3 hours later after returning to [facility] for further evaluation. He has notable bruise on his left brow and his left arm. He complains of pain in these 2 locations, but no pain in any other place. We did contact the and per her when he fell and hit his head he had no loss of consciousness and he was able to get up without difficulty. describe no changes after the event. Patient has no other complaints at this time. No other modifying factors. Related Data Home Medications Medication Instructions Recorded Confirmed fluoxetine 40 mg capsule 40 mg PO DAILY 01/11/19 07/24/19 furosemide 40 mg tablet 40 mg PO DAILY 01/11/19 07/24/19 guaifenesin 100 mg/5 mL oral liquid 100 mg PO QID PRN ml 01/11/19 05/08/19 metformin 1,000 mg tablet 1,000 mg PO BID 01/11/19 07/24/19 omeprazole 20 mg tablet,delayed 20 mg PO DAILY 01/11/19 07/24/19 release simvastatin 20 mg tablet 20 mg PO QHS 01/11/19 07/24/19 triamcinolone acetonide 0.025 % 1 applic TP BID 01/11/19 07/24/19 topical cream apixaban 5 mg tablet 5 mg PO BID 01/19/19 07/24/19 bisacodyl 10 mg rectal suppository 10 mg MD DAILY PRN 01/19/19 07/24/19 Lantus Solostar U-100 Insulin 16 unit SUBCUT .QHS 02/16/19 07/24/19 carbidopa-levodopa 2 tab PO TID 02/16/19 07/24/19 insulin lispro [Humalog U-100 0 - 5 sliding scale dose SUBCUT 02/16/19 07/24/19 Insulin] DIRECTED loratadine [Claritin] 10 mg PO DAILY 02/16/19 07/24/19 Oxygen #1 each 03/22/19 05/08/19 albuterol sulfate 90 mcg/actuation 2 puff IH Q4H gm 03/22/19 05/08/19 aerosol inhaler dextrose 40 % oral gel 15 gm PO Q15M 03/22/19 07/24/19 ipratropium-albuterol 0.5 mg-3 3 ml IH QID PRN 03/22/19 07/24/19 mg(2.5 mg base)/3 mL nebulization soln loperamide 2 mg capsule 2 mg PO Q6H PRN PRN cap 03/22/19 07/24/19 magnesium oxide 420 mg tablet 400 mg PO DAILY tab 03/22/19 05/08/19 Fleet Enema 118 ml MD DIRECTED 03/23/19 07/24/19 acetaminophen 325 mg tablet 650 mg PO Q6H tab 05/04/19 07/24/19 magnesium hydroxide 400 mg/5 mL 30 ml PO QHS PRN ml 05/04/19 07/24/19 oral suspension Allergies Allergy/AdvReac Type Severity Reaction Status Date / Time aspirin Allergy Unknown Verified 07/24/19 12:22 indomethacin [From Indocin] Allergy Unknown Verified 07/24/19 12:22 latex Allergy Unknown Verified 07/24/19 12:22 General Stated Complaint: GenMedical RACHEL: 2 Review of Systems All systems reviewed & are unremarkable except as noted in HPI and below PFSH Medical History (Updated 07/20/19 @ 13:34 by Leigh Velez) Colonic polyp (Acute) Depression with anxiety (Acute) Diabetes (Chronic) Falls (Chronic) H/O ETOH abuse (Acute) Hyperlipidemia (Acute) Hypertension (Chronic) Insomnia (Acute) Obesity (Chronic) LULA (obstructive sleep apnea) (Chronic) Osteoarthritis (Chronic) Peripheral neuropathy (Chronic) PSP (progressive supranuclear palsy) (Chronic) PTSD (post-traumatic stress disorder) (Acute) Pulmonary embolism (Chronic) Right rotator cuff tendonitis (Acute) Injection: 07/20/2019 Sedative abuse (Acute) Shortness of breath (Acute) Surgical History (Updated 07/20/19 @ 13:36 by Leigh Velez) S/P cholecystectomy (Acute) Status post shoulder surgery (Inactive) Social History Smoking/Tobacco Use Status: Never Alcohol Intake: former Year quit: 2018 Drug use: Never Substance use type: does not use Household members: spouse Housing: halfway Number of Children: 3 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[place]; 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 3.ENT: Moist MM. Neck: Symmetric, trachea midline, No thyromegaly. There is no evidence of raccoon eyes, wen sign, CSF rhinorrhea, mastoid tenderness, cranial crepitus, hemotympanum, exophthalmos, or hyphema. Patient demonstrates intact dentition with no signs of tooth avulsion or fracture, no signs of jaw deformity, no evidence of a LeFort's fracture, with an intact palate, nose and orbital region. There is no evidence of a nasal septal hematoma. No proptosis. Jaw closes symmetrically. Airway is clear. Notable bruising over the left superior and lateral orbit. Mild swelling. Mild tenderness. No evidence of entrapment. 4.CVS: +S1/S2, No murmurs or gallops. Peripheral pulses 2+ and equal in all extremities. Brisk capillary refill in all extremities. 5.RESP: Unlabored respiratory effort. Clear to auscultation bilaterally. No wheezes rales or rhonchi 6.GI: Soft, Nontender/Nondistended, No hepatosplenomegaly. No guarding or rebound. 7.MSK: Normocephalic, Extremities w/o deformity. No cyanosis or clubbing, mild to moderate bruising over the left thumb, he is able to move it in all directions for opposition flexion and extension. No significant instability. Mild to moderate pain on palpation of the proximal phalanx. No pain over the snuffbox. No other movement abnormalities or tenderness for the rest of the hands. Normal movement of all extremities 8.Skin: Warm, Dry. No rashes or lesions. No lacerations. 9.Neuro: adult care provider II-XII grossly intact. Sensation grossly intact, no focal neurologic deficits. 10.Psych: (AAO) x3. Appropriate mood and affect Course Vital Signs Vital signs: Vital Signs Temperature 36.6 C 07/24/19 12:16 Pulse 99 H 07/24/19 12:16 Respiratory Rate 16 07/24/19 12:16 Blood Pressure 117/80 07/24/19 12:16 Pulse Oximetry 99 07/24/19 12:16 Temperature 36.6 C 07/24/19 12:16 Temperature Source Temporal Artery Scan 07/24/19 12:16 Pulse 99 H 07/24/19 12:16 Respiratory Rate 18 07/24/19 12:16 Respiratory Effort Non-Labored 07/24/19 12:16 Respiratory Depth Normal 07/24/19 12:16 Respiratory Pattern Normal 07/24/19 12:16 Blood Pressure 117/80 07/24/19 12:16 Blood Pressure Position Sitting 07/24/19 12:16 Pulse Oximetry 99 07/24/19 12:16 Oxygen Delivery Method Room Air 07/24/19 12:16 Oxygen Flow Rate 0 07/24/19 12:16 Pain Level 0 07/24/19 12:16
--- NOTE | 2019-07-24 12:29 | DI.RAD_ITS ---
EXAM: XR THUMB LT CLINICAL HISTORY: left proximal thumb pain. TECHNIQUE: 2D digital imaging was performed. COMPARISON: None. FINDINGS: BONES: No acute fracture is present. No bony destructive lesion is seen. JOINTS: No dislocation present. SOFT TISSUE: Normal. IMPRESSION: No evidence of acute fracture, dislocation, or subluxation.
--- NOTE | 2019-07-24 12:41 | DI.CT_ITS ---
EXAM: CT HEAD CERVICAL SPINE WO CLINICAL HISTORY: fall, elequis, r/o bleed TECHNIQUE: The exams were performed according to the usual protocol without contrast. COMPARISON: CT HEAD CERVICAL SPINE WO from 05/08/2019 FINDINGS: CT head: The ventricles and sulci are stable. They are consistent with the patient's age. There are areas of decreased attenuation in the white matter. These are most consistent with small vessel ischemic dis ease. No acute intracranial hemorrhage is present. No acute midline shift or mass effect is present . The ventricles are intact. The basilar cisterns are patent. Visualized paranasal sinuses and mas toid air cells are well pneumatized. The calvarium is intact. Soft tissue swelling is seen around t he left orbit and overlying the left forehead. CT cervical spine: No acute fractures or subluxations are seen in the cervical spine. There are degenerative changes se en in the cervical spine resulting in multilevel neural foraminal stenosis. No significant central s madyson canal stenosis is present. Soft tissues are unremarkable. The lung apices show no acute abnor mality. Mild emphysematous changes are seen in the lungs. IMPRESSION: 1. No acute intracranial process. 2. Scalp hematoma overlying the left frontal bone. Periorbital soft tissue swelling. 3. No acute fracture or subluxation in the cervical spine.
[2019-07-24 12:46] LABS: Abs Immature Grans 0.03 k/cumm (0.0-0.09); Absolute Basophil Count 0.02 k/cumm (0.0-0.2); Absolute Lymphocyte Count 2.51 k/cumm (1.2-3.4); Absolute Monocyte Count 0.99 k/cumm (0.11-0.7); Basophils % 0.2; Eosinophils % 0.5; HCT 43.6 % (40.0-50.0); HGB 15.1 g/dL (13.5-17.5); Immature Grans % 0.3; Lymphocytes % 22.7; Mean Corp. HGB Concentration 34.6 g/dL (32.0-36.0); Mean Corpuscular Hemoglobin 30.8 pg (27.0-33.0); Mean Platelet Volume 9.5 fL (8.0-11.0); Monocytes % 8.9; Neutrophils % 67.4; Platelet Count 307 x1000/uL (130-400); White Blood Cell Count 11.07 k/cumm (4.4-10.8)
[2019-07-24 12:47] LABS: Absolute Eosinophil Count 0.06 k/cumm (0.0-0.7); Absolute Neutrophil Count 7.46 k/cumm (1.2-6.7)
[2019-07-24 12:54] LABS: INR 1.2 (0.9-1.1); PTT Activated 28.5 sec (21.0-31.4); Prothrombin Time 11.8 sec (9.3-11.0)
[2019-07-24 12:58] LABS: AST 14 U/L (15-37); Albumin 3.9 g/dL (3.4-5.0); Alkaline Phosphatase 66 U/L (46-116); Anion Gap 9.5 mmol/L (3-11); BUN 23 mg/dL (7-18); Bilirubin, Total 0.5 mg/dL (0.2-1.0); CO2 26.5 mmol/L (21.0-32.0); CREATININE 0.64 mg/dL (0.70-1.30); Calcium 9.3 mg/dL (8.5-10.1); Chloride 101 mmol/L (98-107); Glucose 215 mg/dL (74-106); Potassium 4.3 mmol/L (3.5-5.1); Sodium 137 mmol/L (136-145); Total Protein 7.4 g/dL (6.4-8.2)
--- NOTE | 2019-07-24 13:05 | NUR.NOTE ---
Nursing Note: spoke with pts who reports his speech is normally garbled and slurred I cant understand what he is saying half the time is what she reports.
--- NOTE | 2019-07-24 13:10 | DI.VRAD_ITS ---
PROCEDURE INFORMATION: Exam: CT Head Without Contrast Exam date and time: 07/24/2019 12:34 PM Age: 68 years old Clinical indication: Injury or trauma; Initial encounter; Blunt trauma (contusions or hematomas) and concussion / head injury; Consciousness not specified; Blunt trauma and concussion /head injury; Injury details: Fall, elequis. R/O bleed TECHNIQUE: Imaging protocol: Computed tomography of the head without contrast. Radiation optimization: All CT scans at this facility use at least one of these dose optimization techniques: automated exposure control; mA and/or kV adjustment per patient size (includes targeted exams where dose is matched to clinical indication); or iterative reconstruction. COMPARISON: CT HEAD CERVICAL SPINE WO 01/10/2019 20:57 FINDINGS: Brain: Stable small vessel ischemic white matter changes of aging. No acute intracranial hemorrhage. No large territory infarct. Ventricles: Stable ventricular megaly. Bones/joints: Unremarkable. No acute fracture. Sinuses: Visualized sinuses are unremarkable. No fluid levels. Mastoid air cells: Visualized mastoid air cells are well aerated. Soft tissues: Soft tissue swelling over the left forehead and left orbit. IMPRESSION: 1. No acute intracranial abnormality. 2. Soft tissue swelling over left forehead and orbit. PROCEDURE INFORMATION: Exam: CT Cervical Spine Without Contrast Exam date and time: 07/24/2019 12:34 PM Age: 68 years old Clinical indication: Injury or trauma; Initial encounter; Blunt trauma (contusions or hematomas) and concussion / head injury; Consciousness not specified; Blunt trauma and concussion /head injury; Injury details: Fall, elequis. R/O bleed TECHNIQUE: Imaging protocol: Computed tomography images of the cervical spine without contrast. Radiation optimization: All CT scans at this facility use at least one of these dose optimization techniques: automated exposure control; mA and/or kV adjustment per patient size (includes targeted exams where dose is matched to clinical indication); or iterative reconstruction. COMPARISON: CT HEAD CERVICAL SPINE WO 01/10/2019 20:57 FINDINGS: Vertebrae: No acute fracture. Normal alignment. Age-related multilevel degenerative changes of the cervical spine. C2-C3: [No fracture. No spinal stenosis. Asymmetric narrowing of the left neural foramen. C3-C4: No fracture. No spinal stenosis. Bilateral facet arthropathy with narrowing of the neural foramen. C4-C5: No fracture. No spinal stenosis. Bilateral facet arthropathy with narrowing of the neural foramen. C5-C6: No fracture. No spinal stenosis. Facet arthropathy with asymmetric left neural foraminal stenosis. C6-C7: No fracture. No spinal stenosis. No neural foraminal narrowing. C7-T1: No fracture. No spinal stenosis. No neural foraminal narrowing. Soft tissues: Unremarkable. Lungs: Biapical pleural scarring. Right emphysematous changes. IMPRESSION: No acute findings. Dictated and Authenticated by: Zeny Ravi MD. Ordering:AG Dumont MD
--- NOTE | 2019-07-24 13:12 | DI.VRAD_ITS ---
PROCEDURE INFORMATION: Exam: XR Left Finger(s) Exam date and time: 07/24/2019 12:43 PM Age: 68 years old Clinical indication: Finger(s); Patient HX: Left proximal thumb pain TECHNIQUE: Imaging protocol: XR Left fingers. Views: Minimum 2 views. COMPARISON: No relevant prior studies available. FINDINGS: Bones/joints: Unremarkable. Soft tissues: Unremarkable. IMPRESSION: No evidence for acute bony injury. If clinical symptoms persist recommend followup film in 7-10 days. Dictated and Authenticated by: Zeny Ravi MD. Ordering:AG Dumont MD
[2019-07-24 13:16] LABS: ALT 6 U/L (16-63)
== END 2019-07-24 13:43 | disposition skilled nursing facility (03) ==
PROVIDERS: Emergency Provider Student in an Organized Health Care Education/Training Program; PCP Internal Medicine
DX: S00.83XA Contusion of other part of head, initial encounter (principal); S63.622A Sprain of interphalangeal joint of left thumb, initial encounter; W18.09XA Striking against other object with subsequent fall, initial encounter; Z79.01 Long term (current) use of anticoagulants; E11.9 Type 2 diabetes mellitus without complications; Z79.4 Long term (current) use of insulin; I10 Essential (primary) hypertension
CPT/HCPCS: 29125; 36415; 80053; 99284; 70450; 72125; 73140; 85025; 85610; 85730; 99285; L3807

== ENCOUNTER 2019-08-30 10:37 | Outpatient (CLI) | payer OTHER, SELFPAY ==
[2019-08-30 11:09] LABS: BUN 10 mg/dL (7-18); CREATININE 0.75 mg/dL (0.70-1.30); Calcium 9.1 mg/dL (8.5-10.1); Chloride 101 mmol/L (98-107); Glucose 293 mg/dL (74-106); Potassium 4.3 mmol/L (3.5-5.1); Sodium 140 mmol/L (136-145)
== END 2019-08-30 10:57 ==
PROVIDERS: PCP Internal Medicine; Visit Provider Nurse Practitioner Adult Health
DX: R33.9 Retention of urine, unspecified (principal); E78.5 Hyperlipidemia, unspecified
CPT/HCPCS: 36415; 80048

== ENCOUNTER → 2019-09-21 09:35 | Outpatient (BNVA) | payer MEDICARE, SELFPAY | PROVIDERS: PCP Internal Medicine; Referring Provider Internal Medicine; Visit Provider Orthopaedic Surgery | DX: M75.21 Bicipital tendinitis, right shoulder (principal) | CPT/HCPCS: 20610; 99213; J1040 ==

== ENCOUNTER 2019-09-24 00:49 | Outpatient (REF) | payer OTHER, SELFPAY ==
[2019-09-24 01:15] LABS: Bilirubin Negative (Negative); Blood Negative (Negative); Clarity Clear (Clear); Glucose Negative (Negative); Ketones Trace mg/dL (Negative); Leukocyte Esterase Small (Negative); Nitrite Positive (Negative); Specific Gravity 1.025 (1.005-1.025)
[2019-09-24 01:25] LABS: RBC 0-2 HPF (0-2); WBC 20-50 HPF (0-5)
[2019-09-24 01:26] LABS: Bacteria Moderate HPF (Negative); Epithelial Cells Rare HPF (Negative); Mucus Trace (Negative)
[2019-09-24 01:27] LABS: C & S Indicated? C&S Done As Ordered
== END 2019-09-24 01:09 ==
LOC: LBN 00:49
PROVIDERS: PCP Internal Medicine; Visit Provider Nurse Practitioner Adult Health
DX: R32 Unspecified urinary incontinence (principal)
CPT/HCPCS: 87077; 81003; 81015; 87086

== ENCOUNTER 2019-10-13 11:26 | Outpatient (REF) | payer SELFPAY ==
[2019-10-13 12:35] LABS: Bilirubin Negative (Negative); Blood Negative (Negative); Clarity Clear (Clear); Glucose Negative (Negative); Ketones Negative (Negative); Leukocyte Esterase Negative (Negative); Nitrite Negative (Negative); Specific Gravity 1.025 (1.005-1.025)
== END 2019-10-13 11:46 ==
LOC: LBN 11:26
PROVIDERS: PCP Internal Medicine; Visit Provider Nurse Practitioner Adult Health
DX: R33.9 Retention of urine, unspecified (principal); R82.998 Other abnormal findings in urine
CPT/HCPCS: 81003

== ENCOUNTER 2019-10-25 13:17 | Outpatient (REF) | payer SELFPAY ==
[2019-10-25 15:41] LABS: Anion Gap 14.2 mmol/L (3-11); BUN 17 mg/dL (7-18); CO2 24.8 mmol/L (21.0-32.0); CREATININE 0.82 mg/dL (0.70-1.30); Calcium 9.6 mg/dL (8.5-10.1); Chloride 101 mmol/L (98-107); Glucose 130 mg/dL (74-106); Potassium 4.3 mmol/L (3.5-5.1); Sodium 140 mmol/L (136-145)
[2019-10-25 17:40] LABS: Hemoglobin A1C 6.5 % (3.8-5.6)
== END 2019-10-25 13:37 ==
LOC: LBN 13:17
PROVIDERS: PCP Internal Medicine; Visit Provider Nurse Practitioner Adult Health
DX: E11.9 Type 2 diabetes mellitus without complications (principal); I10 Essential (primary) hypertension; E78.5 Hyperlipidemia, unspecified; D63.8 Anemia in other chronic diseases classified elsewhere; R33.9 Retention of urine, unspecified
CPT/HCPCS: 80048; 83036